=== PATIENT | female | born 1960 | race Caucasian/White ===

== ENCOUNTER 2017-02-10 14:23 | Outpatient (CLI) | payer MEDICARE, OTHER ==
--- OUTSIDE RECORDS SUMMARY | 2017-02-10 14:25 | XMS | Clinical Summary ---
:1960 Author Organization [facility] Address [address] [place] [address] Phone Care Team Providers Name Role Phone , Primary Care Provider Unavailable Allergies Not on File Current Medications Not on file Active Problems Not on file Social History Tobacco Use Types Packs/Day Years Used Date Never Assessed Sex Assigned at Date Recorded Not on file Last Filed Vital Signs Not on file Plan of Treatment Not on file Results Not on filefrom Last 3 Months
== END 2017-02-10 14:24 | disposition home or self-care (01) ==
LOC: WCC 14:23
PROVIDERS: ATTEND Family Medicine
DX: K94.00 Colostomy complication, unspecified (principal)
CPT/HCPCS: 97139 ×2; G0463; 99211

== ENCOUNTER 2017-05-23 09:22 | Outpatient (CLI) | payer MEDICARE, MEDICAID ==
--- NOTE | 2017-05-23 11:57 | CT ---
CT OF THE CHEST WITH COTNRAST CT OF THE ABDOMEN AND PELVIS WITH CONTRAST: COMPARISON: 11/10/16. HISTORY: Rectal cancer. TECHNIQUE: 1. Multiple contiguous axial images were obtained in a CT of the chest with contrast. Coronal refor mats were performed. 2. Multiple contiguous axial images were obtained in a CT of the abdomen and pelvis with contrast. P.o. contrast was administered. Coronal reformats were performed. FINDINGS: CT CHEST: No pulmonary nodules or infiltrates are seen. No pleural effusion or pneumothorax are seen. The heart is normal in size without focal cardiac abnormality. No hilar or mediastinal lymphadenopat hy are seen. The patient is status post sternotomy. There is a stable 1.6 cm hypodensity in the right lobe of the thyroid. The chest wall soft tissues a re unremarkable. No suspicious osseous lesions are seen in the bones of the thorax. CT ABDOMEN/PELVIS: Gallstones are seen in the gallbladder. The liver has a smooth contour. There is a recanalized kristen umbilical vein and multiple retroperitoneal varices. The spleen is enlarged measuring 16.8 cm in maximiliano gth. There are nonspecific subcentimeter hypodensities in the spleen which are stable. The kidneys, adrenal glands, and pancreas are unremarkable. No focal liver lesions are seen. The previously seen thrombus within the portal vein at the confluence has resolved. The previously s een thrombus within the branches of the superior mesenteric vein have nearly completely resolved with only a very small filling defect which could represent a mixing artifact versus a small amount of re sidual thrombus in this location. There is colostomy in the left lower quadrant of the abdominal wall. The rectum appears to have been removed. There is a small fluid collection in the perineum measuring 4.2 cm in size which may repre sent a seroma or abscess. There is moderate stool retention in the colon. The small bowel is normal in caliber. There is soft tissue density in the presacral space which may represent scarring or rad iation therapy change. No abdominal or pelvic lymphadenopathy are seen. Atherosclerotic calcifications are seen in the aort a. No inguinal adenopathy is seen. Soft tissue anasarca is present. The bones of the abdomen and p angelika show no suspicious osseous abnormality. IMPRESSION: 1. No evidence of intrathoracic metastatic disease. 2. Right thyroid hypodensity may represent a nodule or cyst. 3. There are multiple varices and splenomegaly consistent with portal hypertension. The previously seen thrombus in the portal vein and superior mesenteric vein have nearly completely resolved. 4. Interval postsurgical changes with an ostomy in the left abdominal wall and a fluid collection in the perineal region which may represent a seroma or abscess. Correlate with white blood cell count. 5. No evidence of intraabdominal recurrent disease. POS: [facility]
[2017-05-23] MEDS ORDERED: Iopamidol 370 76% 100 ML VIAL ONE (15:48)
== END 2017-05-23 09:23 | disposition home or self-care (01) ==
LOC: CT 09:22
PROVIDERS: ATTEND Internal Medicine Medical Oncology
DX: J90 Pleural effusion, not elsewhere classified (principal); E07.89 Other specified disorders of thyroid; R16.1 Splenomegaly, not elsewhere classified; I83.90 Asymptomatic varicose veins of unspecified lower extremity; Z86.718 Personal history of other venous thrombosis and embolism; Z85.048 Personal history of other malignant neoplasm of rectum, rectosigmoid junction, and anus; Z98.890 Other specified postprocedural states
CPT/HCPCS: 71260; 74177

== ENCOUNTER 2017-08-09 12:56 | Outpatient (CLI) | payer MEDICARE | END 2017-08-09 12:57 | disposition home or self-care (01) | LOC: BICMAMMO 12:56 | PROVIDERS: ATTEND Internal Medicine Medical Oncology | DX: Z85.038 Personal history of other malignant neoplasm of large intestine; Z12.31 Encounter for screening mammogram for malignant neoplasm of breast | CPT/HCPCS: 77063; 77067 ==

== ENCOUNTER 2017-12-11 16:02 | Observation (INO) | payer MEDICAID, MEDICARE ==
[2017-12-11 17:04] LABS: ALT (SGPT) 17 U/L (8-55); AST (SGOT) 30 U/L (5-34); Albumin 3.6 g/dL (3.5-5.0); Alkaline Phosphatase 58 U/L (40-150); Anion Gap 10 mmol/L (10-20); BUN (Urea Nitrogen) 7 mg/dL (9.8-20.1); Bilirubin, Total 1.5 mg/dL (0.2-1.2); CK (CPK) 473 U/L (29-168); Calc. Creatinine Clearance 0 mL/min (70-130); Calcium 8.9 mg/dL (7.8-10.44); Carbon Dioxide 25 mmol/L (22-29); Chloride 109 mmol/L (98-107); Estimated GFR-MDRD Greater than 90; Globulin 2.3 g/dL (2.4-3.5); Glucose 78 mg/dL (70-105); Lipase 42 U/L (8-78); Potassium 3.4 mmol/L (3.5-5.1); Protein, Total 5.9 g/dL (6.0-8.3); Sodium 141 mmol/L (136-145)
[2017-12-11 17:08] LABS: #Eosinphils 0.1 thou/uL (0.0-0.7); #Lymphocytes 0.7 thou/uL (1.20-3.40); #Monocytes 0.3 thou/uL (0.11-0.59); #Neutrophils 2.1 thou/uL (1.40-6.50); %Eosinophils 2.4 % (0.0-10.0); %Lymphocytes 22.3 % (21.0-51.0); %Monocytes 9.2 % (0.0-10.0); %Neutrophils 66.1 % (42.0-75.0); Mean Corpuscular HGB CONC 35.2 g/dL (32.0-36.0); Mean Corpuscular Hemoglobin 33.5 pg (27.0-31.0); Mean Corpuscular Volume 95.3 fL (78.0-98.0); Mean Platelet Volume 8.4 fL (7.4-10.4); Platelet Count 59 thou/uL (130-400); RBC Distribution Width 12.8 % (11.5-14.5); Red Blood Cell (RBC) Count 3.86 mill/uL (4.20-5.40); Troponin I 0.013 ng/mL (< 0.028); White Blood Cell (WBC) Count 3.2 thou/uL (4.8-10.8)
[2017-12-11 17:11] LABS: CKMB 8.6 ng/mL (0-6.6)
--- NOTE | 2017-12-11 17:14 | RAD ---
FRONTAL VIEW CHEST: INDICATIONS: Chest pain. COMPARISON: March 2017 FINDINGS: Postoperative changes of the mediastinum are again seen. There is no consolidation, effusion, or dis crete pneumothorax. The cardiac silhouette is accentuated by the portable technique. IMPRESSION: No focal consolidation. POS: [facility]
--- NOTE | 2017-12-11 18:09 | CT ---
CT HEAD NONCONTRAST: INDICATIONS: Dizziness. A 57-year-old female. FINDINGS: There is a normal sized ventricular system. No acute intracranial hemorrhage, mass effect, or midlin e shift. Minimal areas of bilateral white matter hypodensity, likely related to microvascular ischem ic disease. The paranasal sinuses are clear where visualized. IMPRESSION: 1. No acute intracranial abnormalities. 2. Subtle areas of white matter hypoattenuation bilaterally, which may be on the basis of microvascu lar ischemic disease. As necessary, followup with brain MRI may be obtained. POS: [facility]
[2017-12-11] MEDS ORDERED: Lidocaine Viscous Sol 2% 15 ml UD Cup ONE (18:12)
[2017-12-11] MEDS ORDERED: Mag-Al 1200 mg/1200 mg/30 ML UDCUP ONE (18:12)
[2017-12-11 18:41] LABS: Bilirubin Negative (Negative); Blood, Urine Negative (Negative); Clarity CLOUDY (Clear); Glucose, Urine (Dipstick) 250 mg/dL (Negative); Leukocyte Moderate (Negative); Nitrite Negative (Negative); Protein, Urine (Dipstick) Negative (Neg-Trace); Specific Gravity, Urine 1.021 (1.002-1.036); pH, Urine 6.5 (5.0-9.0)
[2017-12-11 18:44] LABS: Bacteria/HPF None Seen HPF (None Seen); Hyaline Casts/LPF 4-6 HYALINE CAST LPF (0-3 Hyaline); Pathc Cast-AUWi Flag 1.59 (0-2.49); WBC/HPF 21-50 HPF (0-3)
[2017-12-11] MEDS ORDERED: Nitrofurantoin Macrocrystal 50 MG CAP PO SCH (19:15)
[2017-12-11] MEDS ORDERED: Nitroglycerin 0.4 MG TAB (25 Tab Bottle) ONE (19:40)
[2017-12-11] MEDS ORDERED: Lorazepam 2 MG/ML VIAL ONE (19:49)
[2017-12-11] MEDS ORDERED: Ondansetron PF 4 MG/2 ML Vial IVP PRN (21:18)
[2017-12-11] MEDS ORDERED: Acetaminophen 325 MG TAB PO PRN (21:18)
[2017-12-11] MEDS ORDERED: clonazePAM 0.5 MG TAB PO PRN (21:20)
[2017-12-11] MEDS ORDERED: Ondansetron ODT 4 MG TAB PO PRN (21:20)
[2017-12-11 21:49] VITALS: BMI 36.0
[2017-12-11] MEDS ORDERED: Simethicone Chewable 80 MG TAB PO SCH (22:45)
[2017-12-12 00:44] LABS: Troponin I 0.029 ng/mL (< 0.028)
[2017-12-12] MEDS ORDERED: Nitrofurantoin Macrocrystal 50 MG CAP PO SCH (00:45)
[2017-12-12] MEDS ORDERED: cefTRIAXone\\ROCEPHIN 1 GM in Sodium Chloride 0.9% 100 ML IVPB SCH (01:00)
[2017-12-12 03:38] LABS: #Eosinphils 0.1 thou/uL (0.0-0.7); #Lymphocytes 0.8 thou/uL (1.20-3.40); #Monocytes 0.2 thou/uL (0.11-0.59); #Neutrophils 1.2 thou/uL (1.40-6.50); %Basophils 1.8 % (0.0-1.0); %Eosinophils 3.4 % (0.0-10.0); %Lymphocytes 35.6 % (21.0-51.0); %Monocytes 9.3 % (0.0-10.0); %Neutrophils 49.9 % (42.0-75.0); Hemoglobin 12.4 g/dL (12.0-16.0); Mean Corpuscular HGB CONC 36.3 g/dL (32.0-36.0); Mean Corpuscular Hemoglobin 34.6 pg (27.0-31.0); Mean Corpuscular Volume 95.4 fL (78.0-98.0); Platelet Count 52 thou/uL (130-400); RBC Distribution Width 12.6 % (11.5-14.5); Red Blood Cell (RBC) Count 3.59 mill/uL (4.20-5.40); White Blood Cell (WBC) Count 2.3 thou/uL (4.8-10.8)
[2017-12-12 03:44] LABS: Anion Gap 10 mmol/L (10-20); BUN (Urea Nitrogen) 7 mg/dL (9.8-20.1); Calc. Creatinine Clearance 157 mL/min (70-130); Calcium 8.6 mg/dL (7.8-10.44); Carbon Dioxide 24 mmol/L (22-29); Chloride 110 mmol/L (98-107); Estimated GFR-MDRD Greater than 90; Glucose 102 mg/dL (70-105); Potassium 3.2 mmol/L (3.5-5.1); Sodium 141 mmol/L (136-145)
[2017-12-12 03:49] LABS: Troponin I 0.024 ng/mL (< 0.028)
[2017-12-12] MEDS: Nitrofurantoin Macrocrystal 50 MG CAP PO SCH ×2 (06:39→12:00)
[2017-12-12] MEDS ORDERED: Spironolactone 25 MG TAB PO SCH (08:00)
[2017-12-12] MEDS ORDERED: Ferrous Sulfate 325 MG TAB PO SCH (08:00)
[2017-12-12] MEDS ORDERED: Cyanocobalamin (Vitamin B-12) 1,000 MCG TAB PO SCH (09:00)
[2017-12-12] MEDS ORDERED: Atorvastatin Calcium 10 MG TAB PO SCH (09:00)
[2017-12-12] MEDS ORDERED: Furosemide 40 MG TAB PO SCH (09:00)
[2017-12-12] MEDS ORDERED: Enoxaparin Sodium 40 MG/0.4 ML SYRINGE SC SCH (09:00)
[2017-12-12] MEDS: Simethicone Chewable 80 MG TAB PO SCH ×2 (11:30→12:13)
--- NOTE | 2017-12-12 12:05 | HP ---
CODE STATUS: FULL CODE. PRIMARY CARE PHYSICIAN: Roxanna Smith D.O. TIME OF EVALUATION: 08:00 p.m. CHIEF COMPLAINT: Chest pain. HISTORY OF PRESENT ILLNESS: This is a 57-year-old female patient with past medical history of hypertension; history of coronary artery disease, status post CABG. The patient came to the hospital after having chest pain that she described as a 10/10, the pain has been on and off for the past few days, but today she had an argument with the person that she is renting on her home and she developed the symptoms, no alleviating factors. The patient reported she had been trying to make an appointment with her radiator core tester, but discussion was for the future weeks. The symptoms are associated with neck pain and weakness. REVIEW OF SYSTEMS: Constitutional: No fever or chills, generalized weakness. Respiratory: No cough, no sputum production or shortness of breath. Cardiovascular: The patient has reported chest pain as described in HPI. Gastrointestinal: No nausea, no vomiting, no diarrhea, no abdominal pain. TRANSPORTATION MAINTENANCE OPERATOR : No dizziness, headache or feeling lightheaded. Genitourinary: No burning on urination. Extremities: No leg swelling. All other systems were reviewed and negative except for the findings mentioned above. PAST MEDICAL HISTORY: Coronary artery disease, status post CABG. She also has hypertension. PAST SURGICAL HISTORY: CABG in 2009 and left total knee replacement. PSYCHIATRIC HISTORY: Depression. SOCIAL HISTORY: No drug use. No smoking history. Lives at home alone. FAMILY HISTORY: History of cardiac disease, diabetes. ALLERGIES: CODEINE. REPORTED MEDICATIONS: Gabapentin, atorvastatin, furosemide, spironolactone, calcium, vitamin C, vitamin D3, vitamin B12, and aspirin. PHYSICAL EXAMINATION: VITAL SIGNS: On presentation, blood pressure 125/72 with heart rate 75, respiratory rate was 18, temperature 98.9, oxygen saturation 96% on room air. GENERAL APPEARANCE: The patient is alert and oriented, not in any acute distress. HEENT: Eyes, normal conjunctivae. Moist oral mucosa. Anicteric. NECK: No JVD. RESPIRATORY: Bilateral air entry. No rales, no wheezing. Symmetric expansion. CARDIOVASCULAR: Normal rate, regular rhythm. No murmurs, no gallop. No edema. ABDOMEN: Soft, normal bowel sounds. MUSCULOSKELETAL: Baseline range of motion and strength. No tenderness. SKIN: Warm and intact. No pallor, no rash, no redness. NEUROLOGIC: Baseline sensory. No evidence of any new focal weakness. Baseline speech. Cranial nerves seem to be intact. PSYCHIATRIC: The patient is in good mood; however, she is anxious after she had an argument with her renter. IMAGING: EKG was reviewed. The patient has a normal sinus rhythm, normal EKG with heart rate 74, IA 146, QRS 80, QT corrected 452. The brain CT showed no acute intracranial abnormalities, subtle areas of white matter, hypoattenuation bilaterally which may be on the basis of microvascular ischemic disease. Follow up with MRI may be obtained. The chest x-ray was reviewed. The patient had no focal consolidation. LABORATORY DATA: White count 3.2, hemoglobin 13, platelet count of 59. Sodium 141, potassium 3.4, chloride 109, BUN 7, creatinine 0.6, total bilirubin 1.5. CK 473, troponin 0.013. UA was done and was positive with white count 21-50. ASSESSMENT AND PLAN: The patient will be placed in the hospital with the following medical condition. 1. Chest pain, rule out acute coronary syndrome. The patient has strong risk factors including coronary artery bypass graft in the past, we will do stress test. Dr. Amezcua is her doctor, and he might need to be consulted for further management. 2. Hyperlipidemia, continue atorvastatin. 3. Urinary tract infection, UA is positive, start her on Rocephin, follow cultures, and adjust treatment as needed. 4. Deep venous thrombosis prophylaxis. MTDD
[2017-12-12] MEDS ORDERED: ADENOSINE 60 MG/20 ML VIAL ONE (13:07)
--- NOTE | 2017-12-12 14:21 | NM ---
RADIONUCLE STRESS REST MYOCARDIAL PERFUSION SCAN WITH CT ATTENUATION CORRECTION AND SPECT IMAGING LEFT VENTRICULAR EVALUATION AND EJECTION FRACTION: History: Chest pain. FINDINGS: Adenosine protocol. There is homogeneous uptake of radiotracer throughout the left ventricular myocar dium. No focal perfusion defect or reversibility. QGS analysis of SPECT images shows no focal wall mo tion abnormalities. Ejection fraction calculated at 75%. IMPRESSION: Normal myocardial perfusion scan. Normal LVEF. POS: [facility]
[2017-12-12 15:39] VITALS: BP 124/59; TEMP 97.9
--- NOTE | 2017-12-12 16:45 | DIS ---
DATE OF ADMISSION: 12/11/2017 DATE OF ADMISSION: 12/12/2017 DISPOSITION: Discharged home. PRIMARY CARE PHYSICIAN: Dr. Roxanna Smith. FINAL DIAGNOSES: Noncardiac chest pain, coronary artery disease, cirrhosis of the liver, status post colostomy, dyslipidemia, urinary tract infection, thrombocytopenia and leukopenia. DISCHARGE MEDICATIONS: Spironolactone 25 mg twice a day, Neurontin 300 mg twice a day, Lasix 40 mg t wice a day, Lipitor 10 mg a day, aspirin 81 mg a day, C 1000 mg p.o. daily, Omnicef 300 mg p.o. b.i.d . x5 days. ALLERGIES: CODEINE. PENDING AT THE TIME OF DISCHARGE: Urine culture sensitivities. CODE STATUS: FULL. HOSPITAL COURSE: The patient presented to emergency room with chest pain after an argument with a pe rson bringing her home described the pain as 10/10. Brain CT was done and showed no intracranial abn ormalities. EKG showed no acute changes per the history and physical. LABORATORY DATA AND IMAGING DATA: White count , platelet count 52,000, hemoglobin . Comp metabolic profile showed a creatinine kinase 474. Troponins were 0.013, 0.029, 0.024. The urine jones d white cell count. She has been treated with Rocephin while urine culture is pending. Today, she h as no chest pain, nuclear medicine cardiac, stress test is normal. She is being discharged for followup with her primary care provider in 1 week. No procedures were do ne. A prescription for Omnicef 300 mg twice a day for 5 days was given for her urinary tract infecti on.
[2017-12-12] MEDS ORDERED: Aspirin 81 mg Enteric Coated Tablet PO SCH (21:00)
--- NOTE | 2018-03-06 16:37 | STRESS ---
Acquisition Time: 2017-12-12 10:34:14 Total Exercise Time: 00:04:00 Test Indications: CHEST PAIN Medications: Protocol: ADENOSINE Max HR: 087 BPM 54% of Pred: 161 BPM Max BP: 116/068 mmHG Max Work Load: 1.0 METS RESTING ECG: SINUS BRADYCARDIA AT 55 BPM WITH NON-SPECIFIC ST SEGMENT CHANGES SYMPTOMS: DYSPNEA NORMAL BP RESPONSE ECTOPY: NONE ECG STRESS: NO SIGNIFICANT CHANGES INTERPRETATION: NEGATIVE ECG/AWAIT NUCLEAR IMAGES FOR DEFINITIVE DIAGNOSIS Confirmed by MARIYA DOCKERY M.D. ([id number]) on 03/06/2018 4:35:46 PM Referred By: MD Martha BAH Confirmed By:MARIYA DOCKERY M.D.
== END 2017-12-12 16:07 | disposition home or self-care (01) ==
LOC: ERS 16:02 → 2SW 19:24
PROVIDERS: ADMIT Hospitalist; ATTEND Hospitalist
DX: R07.89 Other chest pain (principal); I25.10 Atherosclerotic heart disease of native coronary artery without angina pectoris; I10 Essential (primary) hypertension; K74.60 Unspecified cirrhosis of liver; E78.5 Hyperlipidemia, unspecified; N39.0 Urinary tract infection, site not specified; D69.6 Thrombocytopenia, unspecified; D72.819 Decreased white blood cell count, unspecified; F32.9 Major depressive disorder, single episode, unspecified; Z79.82 Long term (current) use of aspirin; Z79.899 Other long term (current) drug therapy; Z88.5 Allergy status to narcotic agent; Z95.1 Presence of aortocoronary bypass graft
CPT/HCPCS: 70450; 71045; 78452; 80048; 80053; 82550; 82553; 83690; 84484 ×3; 85025 ×2; 93005; 93017; 94760; 96361; 96365; 96375; 99285; A9500; G0378 ×2; 36415; 81003; 81015; 96374; J0153; J0696; J2060; J7050

== ENCOUNTER 2018-03-24 10:52 | Outpatient (CLI) | payer MEDICARE, MEDICAID ==
[2018-03-24 11:36] LABS: Estimated GFR-MDRD - POC Greater than 90
[2018-03-24] MEDS ORDERED: Iopamidol 370 76% 100 ML VIAL ONE (12:32)
--- NOTE | 2018-03-24 13:43 | CT ---
CONTRAST ENHANCED CT IMAGES OF CHEST AND ABDOMEN AND PELVIS: HISTORY: A 57-year-old female with a history of rectal carcinoma status post resection. FINDINGS: Contrast-enhanced CT images of the chest, abdomen, and pelvis were obtained after the administration of IV and oral contrast. Sternotomy wires seen. There is a right thyroid nodule which is stable. No evidence of mediastinal, axillary, or hilar lymphadenopathy is seen. Calcification of the coronary arteries seen. No definite evidence of lung parenchymal lesions seen. Area of scarring is seen in the lingula. The liver contains some dilated hepatic varicosities. Numerous gallstones seen. The portal thrombus, w hich is secondarily calcified and revascularized, is again seen. No acute portal venous thrombus see n at this time. There is marked splenomegaly unchanged since the previous exam. Hypodense area seen in the spleen compatible with likely splenic cysts. Splenic varicosities also again present includi ng extending into the gastroesophageal region. These were all present on the previous exam and are u nchanged. The adrenal glands and kidneys are unremarkable. Umbilical hernia again seen unchanged since the previous exam. There is a left-sided colostomy site unchanged since the previous exam. There has been surgical rese ction of the rectum and portions of the sigmoid colon. Previously noted peroneal region soft tissue collection or abscess has resolved. Some loop of small bowel herniates inferiorly into the expected developmental location of the anus which has been surgically removed post surgical resection. IMPRESSION: Resolved peroneal fluid collection. Postsurgical change is seen. No evidence of acute thoracic, abd ominal, or pelvic abnormalities or changes seen. POS: [facility]
== END 2018-03-24 10:53 | disposition home or self-care (01) ==
LOC: BICCT 10:52 → CT 10:53
PROVIDERS: ATTEND Internal Medicine Medical Oncology
DX: C20 Malignant neoplasm of rectum (principal); Z98.890 Other specified postprocedural states
CPT/HCPCS: 71260; 74177; 82565

== ENCOUNTER 2018-04-27 17:30 | Emergency (ER) | payer MEDICARE, MEDICAID ==
[2018-04-27 18:18] LABS: #Basophils 0.1 thou/uL (0.0-0.2); #Eosinphils 0.1 thou/uL (0.0-0.7); #Lymphocytes 1.1 thou/uL (1.20-3.40); #Monocytes 0.3 thou/uL (0.11-0.59); #Neutrophils 1.8 thou/uL (1.40-6.50); %Basophils 2.4 % (0.0-1.0); %Eosinophils 3.8 % (0.0-10.0); %Monocytes 9.5 % (0.0-10.0); %Neutrophils 52.2 % (42.0-75.0); Hemoglobin 13.9 g/dL (12.0-16.0); Mean Corpuscular HGB CONC 34.4 g/dL (32.0-36.0); Mean Corpuscular Hemoglobin 31.9 pg (27.0-31.0); Mean Corpuscular Volume 92.6 fL (78.0-98.0); Mean Platelet Volume 8.4 fL (7.4-10.4); Platelet Count 70 thou/uL (130-400); RBC Distribution Width 12.6 % (11.5-14.5); Red Blood Cell (RBC) Count 4.36 mill/uL (4.20-5.40); White Blood Cell (WBC) Count 3.4 thou/uL (4.8-10.8)
[2018-04-27 19:24] LABS: INR-International Normal Ratio 1.3; PTT 35.8 SEC (22.9-36.1); Prothrombin Time 15.8 SEC (12.0-14.7)
[2018-04-27 19:35] LABS: ALT (SGPT) 18 U/L (8-55); AST (SGOT) 33 U/L (5-34); Albumin 3.8 g/dL (3.5-5.0); Alkaline Phosphatase 62 U/L (40-150); Anion Gap 13 mmol/L (10-20); BUN (Urea Nitrogen) 9 mg/dL (9.8-20.1); Bilirubin, Total 1.5 mg/dL (0.2-1.2); Calc. Creatinine Clearance 0 mL/min (70-130); Calcium 9.4 mg/dL (7.8-10.44); Carbon Dioxide 27 mmol/L (22-29); Chloride 105 mmol/L (98-107); Estimated GFR-MDRD Greater than 90; Globulin 2.8 g/dL (2.4-3.5); Glucose 98 mg/dL (70-105); Potassium 3.7 mmol/L (3.5-5.1); Protein, Total 6.6 g/dL (6.0-8.3); Sodium 141 mmol/L (136-145)
[2018-04-27 20:18] LABS: Bilirubin Negative (Negative); Blood, Urine Large (Negative); Clarity CLOUDY (Clear); Glucose, Urine (Dipstick) Negative (Negative); Leukocyte Small (Negative); Nitrite Negative (Negative); Protein, Urine (Dipstick) Negative (Neg-Trace); Specific Gravity, Urine 1.003 (1.002-1.036)
[2018-04-27 20:21] LABS: Hyaline Casts/LPF 0-3 HYALINE CAST LPF (0-3 Hyaline); Pathc Cast-AUWi Flag 0.72 (0-2.49); Squamous Epithelial 0-3 HPF (0-3); Yeast-AUWi Flag 44.6 (0-25.0)
[2018-04-27 20:31] LABS: Bacteria/HPF Rare-Few HPF (None Seen); Yeast-All Forms None Seen HPF (None Seen)
--- NOTE | 2018-04-27 22:27 | ULT ---
TRANSABDOMINAL AND TRANSVAGINAL PELVIC ULTRASOUND: 04/27/18 PROVIDED CLINICAL HISTORY: Postmenopausal bleeding. FINDINGS: Uterus measures about 11.7 x 4.2 x 5.2 cm and demonstrates an unremarkable appearance to the uterine myometrium. Endometrial thickness is approximately 4 to 5 mm. There is conspicuous fluid echogenicity present within the region of the uterine cervix. The ovaries are not distinctly identified. There is no evidence for free pelvic fluid. IMPRESSION: 1. No significant endometrial thickening is apparent. 2. Nonspecific fluid echogenicity in the region of the uterine cervix. POS: [facility]
--- NOTE | 2018-04-27 22:49 | CT ---
CT OF THE ABDOMEN AND PELVIS WITH IV CONTRAST 04/27/18 PROVIDED CLINICAL HISTORY: Vaginal bleeding. FINDINGS: The visualized lung bases are free of significant opacity. Splenomegaly and multiple splenic and gastric and paraesophageal varices are demonstrated. Multiple g allstones are seen. The kidneys, liver, pancreas and adrenal glands demonstrate a stable CT appearanc e. Left lower quadrant end colostomy change are seen. There is herniation of colon, small bowel and fat within the stomal defect. There is a fat containing umbilical hernia. There is no evidence for bowel obstruction. There is conspicuous colonic fecal retention suggesting constipation. The osseous structures demonstrate no concerning lytic or blastic lesions. There is no inflammatory f at stranding, free fluid or free air apparent. Vascular calcifications are seen. There is chronic alivia earing calcified thrombus present within the main portal vein which is partially occlusive. IMPRESSION: No evidence for an acute process. Chronic findings as above. POS: [facility]
== END 2018-04-27 23:56 | disposition home or self-care (01) ==
LOC: ERS 17:30
DX: N93.9 Abnormal uterine and vaginal bleeding, unspecified (principal); I10 Essential (primary) hypertension; F32.9 Major depressive disorder, single episode, unspecified
CPT/HCPCS: 36415; 74177; 76856; 80053; 81003; 81015; 82274; 85025; 85610; 85730; 86850; 86870; 86900; 86901; 86922; 87086

== ENCOUNTER 2018-08-17 15:02 | Outpatient (CLI) | payer MEDICARE, MEDICAID ==
--- NOTE | 2018-08-17 16:25 | MMO ---
Bilateral MAMMO Bilat Screen [facility]. CLINICAL HISTORY: Patient is 58 years old and is seen for screening. The patient has the following family history of breast cancer: cousin female and maternal aunt. The patient has a history of ovarian cancer in 2017; colon cancer in 2009 and liver cancer 20YRS AGO. The patient has a history of left cyst aspiration in 2013 - benign. VIEWS: The views performed were: bilateral craniocaudal with tomosynthesis and bilateral mediolateral oblique with tomosynthesis. FILMS COMPARED: The present examination has been compared to prior imaging studies performed at [facility] on 08/09/2017, and at [facility] on 10/01/2011, 08/20/2013, 08/19/2014 and 07/08/2016. MAMMOGRAM FINDINGS: There are scattered fibroglandular densities. Finding 1: There are stable benign appearing calcifications seen in both breasts. Finding 2: There are stable benign appearing densities seen in both breasts. There are no suspicious masses, suspicious calcifications, or new areas of architectural distortion. IMPRESSION: THERE IS NO MAMMOGRAPHIC EVIDENCE OF MALIGNANCY. A ROUTINE FOLLOW-UP MAMMOGRAM IN 1 YEAR IS RECOMMENDED. THE RESULTS OF THIS EXAM WERE SENT TO THE PATIENT. ACR BI-RADS Category 2 - Benign finding MAMMOGRAPHY NOTE: 1. A negative mammogram report should not delay a biopsy if a dominant of clinically suspicious mass is present. 2. Approximately 10% to 15% of breast cancers are not detected by mammography. 3. Adenosis and dense breasts may obscure an underlying neoplasm.
== END 2018-08-17 15:03 | disposition home or self-care (01) ==
LOC: BICMAMMO 15:02
PROVIDERS: ATTEND Internal Medicine Medical Oncology
DX: Z12.31 Encounter for screening mammogram for malignant neoplasm of breast (principal); Z85.038 Personal history of other malignant neoplasm of large intestine; Z85.43 Personal history of malignant neoplasm of ovary; Z80.3 Family history of malignant neoplasm of breast
CPT/HCPCS: 77063; 77067

== ENCOUNTER 2018-11-24 08:21 | Outpatient (CLI) | payer MEDICARE, OTHER ==
--- NOTE | 2018-11-24 09:14 | ULT ---
EXAM: US Hepatic Doppler PROVIDED CLINICAL HISTORY: Cirrhosis COMPARISON: CT 04/27/2018 FINDINGS: The visualized abdominal aorta and IVC are unremarkable. The pancreas appears normal as visualized. Liver demonstrates a coarsened echotexture compatible with the provided clinical history of cirrhosis without evidence for mass or intrahepatic biliary ductal dilatation. The common duct is nondilated. Gallstones are demonstrated without evidence for wall thickening or pericholecystic fluid . Prominent vessels are noted adjacent to the left hepatic lobe corresponding to the gastric varices noted by prior CT. Right kidney demonstrates no hydronephrosis or mass. Spleen appears enlarged, measuring about 13.5 cm in craniocaudal dimension. Color Doppler and spectral analysis of the hepatic portal, hepatic venous, hepatic arterial, splenic venous and splenic arterial waveforms demonstrates normal direction of flow. IMPRESSION: 1. Cirrhosis and portal hypertension. No evidence for hepatic mass. 2. Cholelithiasis. 3. Normal hepatic Doppler.
== END 2018-11-24 08:22 | disposition home or self-care (01) ==
LOC: ULT 08:21
PROVIDERS: ATTEND Physician Assistant Medical
DX: C53.9 Malignant neoplasm of cervix uteri, unspecified (principal); K70.30 Alcoholic cirrhosis of liver without ascites; K94.00 Colostomy complication, unspecified; K72.90 Hepatic failure, unspecified without coma; K80.20 Calculus of gallbladder without cholecystitis without obstruction; K76.6 Portal hypertension
CPT/HCPCS: 76705

== ENCOUNTER 2019-03-28 09:01 | Outpatient (CLI) | payer MEDICARE, OTHER ==
--- NOTE | 2019-03-28 11:16 | CT ---
CT CHEST WITH IV CONTRAST CT ABDOMEN WITH IV CONTRAST CT PELVIS WITH IV CONTRAST: HISTORY: Endometrial and rectal cancer. COMPARISON: CT chest, abdomen, and pelvis of 03/24/[address] abdomen and pelvis of 04/27/2018. FINDINGS: A 15 mm low-density lesion in the right lobe of the thyroid gland is again seen. No mediastinal, donald r, or axillary mass or lymphadenopathy is identified. No pleural or pericardial effusions are seen. Scarring in the lingula is again noted. No parenchymal lung nodules or masses are identified. Multiple gallstones, splenomegaly, multiple splenic, gastric, and paraesophageal varices are redemons trated. The liver, pancreas, adrenal glands, and kidneys demonstrate a stable CT appearance. A татьяна lization of the umbilical vein is again seen. No free air, free fluid, or lymphadenopathy is seen in the abdomen or pelvis. There are vascular pierre cifications without evidence of aneurysmal dilatation of the abdominal aorta. Chronic-appearing calc ified thrombus in the main portal vein is again seen with stable partial occlusion. The small bowel loops are not abnormally dilated. Left lower quadrant colostomy is again noted with redemonstration of herniation of colon, small bowel, and fat within the stomal defect. There is no e vidence of bowel obstruction. There is a small bowel loops containing small umbilical hernia. No osteolytic or osteoblastic lesions are seen. There are postop changes of median sternotomy. Ther e are degenerative changes in the thoracolumbar spine. IMPRESSION: Stable exam since 03/24/2018. POS: [facility]
== END 2019-03-28 09:02 | disposition home or self-care (01) ==
LOC: CT 09:01
PROVIDERS: ATTEND Internal Medicine Medical Oncology
DX: C55 Malignant neoplasm of uterus, part unspecified (principal); C54.1 Malignant neoplasm of endometrium; C19 Malignant neoplasm of rectosigmoid junction; I81 Portal vein thrombosis
CPT/HCPCS: 71260; 74177

== ENCOUNTER 2019-08-02 12:04 | Outpatient (CLI) | payer MEDICARE, MEDICAID ==
[2019-08-02] MEDS ORDERED: Iopamidol-370 76% 500 ML 1 ML ONE (13:43)
--- NOTE | 2019-08-02 13:58 | CT ---
CT chest with IV contrast CT abdomen and pelvis with IV and oral contrast HISTORY: Rectal cancer. Endometrial cancer. Restaging. COMPARISON: 05/23/2017. FINDINGS: Oval low density lesion within the inferior aspect of the right thyroid lobe is stable. Tara gs are well-inflated. Minimal linear scarring at the left lateral lung base. Dilated contrast-filled venous structures adjacent to the spleen, stomach, and distal esophagus are s imilar in appearance to the prior study. Spleen measures up to 15.6 cm. Very small nonspecific low-density lesion within the posterior lateral aspect of the spleen is stable. Hyperdense stones are present within the dependent portion of the gallbladder lumen. Dystrophic calci fication within the mid main portal vein is not significantly changed in appearance. Elongated low density filling defect has increased, however, within the main portal vein and extending into the inf erior mesenteric veins. Thickening of the wall of the right colon has the appearance of vascular congestion. Nonobstructed small and large bowel protruding into the left lower quadrant anterior abdominal wall f at through the ostomy defect has increased significantly since the prior study. It lies immediately adjacent to nonobstructed small bowel herniation into the umbilicus. No evidence of bowel obstruction. There are degenerative changes throughout the lumbar spine and sacr oiliac joints. IMPRESSION : Slight interval progression of portal vein thrombus, now extending into and throughout the inferior m esenteric veins. Enlargement of the left lower quadrant parastomal hernia and development of an umbilical hernia since the prior study. Hernias containing nonobstructed bowel. Findings of portal venous hypertension include moderate splenomegaly, extensive varices, and vascular congestion of the right colon that has progressed. Cholelithiasis.
== END 2019-08-02 12:05 | disposition home or self-care (01) ==
LOC: BICCT 12:04
PROVIDERS: ATTEND Internal Medicine Medical Oncology
DX: C20 Malignant neoplasm of rectum (principal); C54.1 Malignant neoplasm of endometrium; K43.5 Parastomal hernia without obstruction or gangrene; K42.9 Umbilical hernia without obstruction or gangrene; I81 Portal vein thrombosis; K55.069 Acute infarction of intestine, part and extent unspecified; K80.20 Calculus of gallbladder without cholecystitis without obstruction; R16.1 Splenomegaly, not elsewhere classified; K76.6 Portal hypertension; I87.8 Other specified disorders of veins; I83.90 Asymptomatic varicose veins of unspecified lower extremity
CPT/HCPCS: 71260; 74177; Q9967

== ENCOUNTER 2019-09-17 19:30 | Outpatient (CLI) | payer MEDICARE, MEDICAID | END 2019-09-17 19:31 | disposition home or self-care (01) | LOC: SLEEPLAB 19:30 | PROVIDERS: ATTEND Family Medicine | DX: G47.33 Obstructive sleep apnea (adult) (pediatric) (principal); G47.10 Hypersomnia, unspecified; E11.9 Type 2 diabetes mellitus without complications; F32.9 Major depressive disorder, single episode, unspecified; I25.10 Atherosclerotic heart disease of native coronary artery without angina pectoris; I10 Essential (primary) hypertension | CPT/HCPCS: 95810 ==

== ENCOUNTER 2019-09-19 13:04 | Outpatient (CLI) | payer MEDICARE, MEDICAID ==
--- NOTE | 2019-09-19 13:51 | MMO ---
Bilateral MAMMO Bilat Screen [facility]. CLINICAL HISTORY: Patient is 59 years old and is seen for screening. The patient has the following family history of breast cancer: cousin female and maternal aunt. The patient has a history of ovarian cancer in 2017; colon cancer in 2009 and liver cancer 20YRS AGO. The patient has a history of left cyst aspiration in 2013 - benign. VIEWS: The views performed were: bilateral craniocaudal with tomosynthesis and bilateral mediolateral oblique with tomosynthesis. FILMS COMPARED: The present examination has been compared to prior imaging studies performed at [facility] on 08/09/2017 and 08/17/2018, and at [facility] on 07/08/2016. This study has been interpreted with the assistance of computer-aided detection. MAMMOGRAM FINDINGS: There are scattered fibroglandular densities. There are no suspicious masses, suspicious calcifications, or new areas of architectural distortion. IMPRESSION: THERE IS NO MAMMOGRAPHIC EVIDENCE OF MALIGNANCY. A ROUTINE FOLLOW-UP MAMMOGRAM IN 1 YEAR IS RECOMMENDED. THE RESULTS OF THIS EXAM WERE SENT TO THE PATIENT. ACR BI-RADS Category 1 - Negative MAMMOGRAPHY NOTE: 1. A negative mammogram report should not delay a biopsy if a dominant of clinically suspicious mass is present. 2. Approximately 10% to 15% of breast cancers are not detected by mammography. 3. Adenosis and dense breasts may obscure an underlying neoplasm. Reported by: SHA SHOOK MD Electonically Signed: [id number]
== END 2019-09-19 13:05 | disposition home or self-care (01) ==
LOC: BICMAMMO 13:04
PROVIDERS: ATTEND Internal Medicine Medical Oncology
DX: Z12.31 Encounter for screening mammogram for malignant neoplasm of breast (principal); Z80.3 Family history of malignant neoplasm of breast; Z85.43 Personal history of malignant neoplasm of ovary; Z85.038 Personal history of other malignant neoplasm of large intestine; Z85.05 Personal history of malignant neoplasm of liver
CPT/HCPCS: 77063; 77067

== ENCOUNTER 2021-01-23 12:11 | Emergency (ER) | payer MEDICARE, MEDICAID ==
[2021-01-23] MEDS ORDERED: Meclizine HCl 25 MG TAB ONE (14:23)
[2021-01-23] MEDS ORDERED: Atropine Sulfate 1 mg/10 ml Syringe ONE (17:01)
[2021-01-23 20:18] LABS: Red Blood Cell (RBC) Count 4.31 mill/uL (4.20-5.40); White Blood Cell (WBC) Count 3.3 thou/uL (4.8-10.8)
[2021-01-23 20:19] LABS: %Lymphocytes 28.1 % (21.0-51.0); %Monocytes 9.2 % (0.0-10.0); %Neutrophils 59.7 % (42.0-75.0); Albumin 3.5 g/dL (3.4-4.8); Anion Gap 12 mmol/L (10-20); BUN (Urea Nitrogen) 9 mg/dL (9.8-20.1); Calc. Creatinine Clearance 0 mL/min (70-130); Calcium 9.2 mg/dL (7.8-10.44); Carbon Dioxide 32 mmol/L (23-31); Chloride 100 mmol/L (98-107); Glucose 121 mg/dL (80-115); Hemoglobin 14.7 g/dL (12.0-16.0); Mean Corpuscular HGB CONC 34.3 g/dL (32.0-36.0); Mean Corpuscular Volume 99.2 fL (78.0-98.0); Mean Platelet Volume 9.6 fL (7.4-10.4); Platelet Count 54 thou/uL (130-400); Potassium 4.3 mmol/L (3.5-5.1); Protein, Total 6.5 g/dL (5.8-8.1); RBC Distribution Width 12.7 % (11.5-14.5); Sodium 140 mmol/L (136-145)
[2021-01-23 20:20] LABS: #Eosinphils 0.1 thou/uL (0.0-0.7); #Lymphocytes 0.9 thou/uL (1.20-3.40); #Monocytes 0.3 thou/uL (0.11-0.59); %Eosinophils 2.9 % (0.0-10.0); ALT (SGPT) 19 U/L (8-55); AST (SGOT) 33 U/L (5-34); Alkaline Phosphatase 56 U/L (40-110); Platelet Morphology Comment Appears Decreased; RBC Morphology Normal
[2021-01-23 20:21] LABS: Troponin I 0.036 ng/mL (< 0.028)
[2021-01-23 21:24] LABS: Troponin I 0.032 ng/mL (< 0.028)
[2021-01-23 21:32] LABS: Clarity Clear (Clear)
[2021-01-23 21:33] LABS: Bacteria/HPF 1+ HPF (None Seen); Bilirubin Negative (Negative); Blood, Urine Negative (Negative); Glucose, Urine (Dipstick) Negative (Negative); Ketone, Urine Negative (Negative); Leukocyte Negative Leu/uL (Negative); Nitrite Positive (Negative); Protein, Urine (Dipstick) Negative (Neg-Trace); RBC/HPF None Seen HPF (0-3); Squamous Epithelial 0-3 HPF (0-3); Urobilinogen 0.2 mg/dL (Less than 2); WBC/HPF None Seen HPF (0-3)
== END 2021-01-23 22:20 | disposition home or self-care (01) ==
LOC: ERS 12:11
DX: R42 Dizziness and giddiness (principal); H93.19 Tinnitus, unspecified ear; R00.1 Bradycardia, unspecified; R29.700 NIHSS score 0; E11.9 Type 2 diabetes mellitus without complications; K74.60 Unspecified cirrhosis of liver
CPT/HCPCS: 70450; 80053; 81001; 84484; 85025; 93005; J0461

== ENCOUNTER 2021-04-29 09:03 | Outpatient (CLI) | payer MEDICARE, MEDICAID | END 2021-04-29 09:04 | disposition home or self-care (01) | LOC: CT 09:03 | PROVIDERS: ATTEND Internal Medicine Gastroenterology | DX: C53.9 Malignant neoplasm of cervix uteri, unspecified (principal); K70.30 Alcoholic cirrhosis of liver without ascites; C55 Malignant neoplasm of uterus, part unspecified; C20 Malignant neoplasm of rectum; K76.6 Portal hypertension; K80.20 Calculus of gallbladder without cholecystitis without obstruction; R16.1 Splenomegaly, not elsewhere classified | CPT/HCPCS: 71260; 74177 ==

== ENCOUNTER 2021-05-26 13:56 | Outpatient (CLI) | payer MEDICARE, MEDICAID | END 2021-05-26 13:57 | disposition home or self-care (01) | LOC: BICMAMMO 13:56 | PROVIDERS: ATTEND Internal Medicine Medical Oncology | DX: Z12.31 Encounter for screening mammogram for malignant neoplasm of breast (principal); Z13.820 Encounter for screening for osteoporosis; Z78.0 Asymptomatic menopausal state; Z80.3 Family history of malignant neoplasm of breast; Z85.43 Personal history of malignant neoplasm of ovary; M85.859 Other specified disorders of bone density and structure, unspecified thigh | CPT/HCPCS: 77063; 77067; 77080 ==

== ENCOUNTER 2021-06-23 11:14 | Inpatient (IN) | payer MEDICARE, MEDICAID ==
[2021-06-23] MEDS ORDERED: Aspirin Chewable 81 MG TAB ONE (11:38)
[2021-06-23 11:59] LABS: #Eosinphils 0.1 thou/uL (0.0-0.7); #Lymphocytes 0.8 thou/uL (1.20-3.40); #Monocytes 0.2 thou/uL (0.11-0.59); #Neutrophils 1.7 thou/uL (1.40-6.50); %Eosinophils 4.2 % (0.0-10.0); %Lymphocytes 27.3 % (21.0-51.0); %Monocytes 8.6 % (0.0-10.0); Hemoglobin 15.7 g/dL (12.0-16.0); Mean Corpuscular HGB CONC 33.8 g/dL (32.0-36.0); Mean Corpuscular Hemoglobin 33.2 pg (27.0-31.0); Mean Corpuscular Volume 98.1 fL (78.0-98.0); Mean Platelet Volume 8.8 fL (7.4-10.4); Platelet Count 54 thou/uL (130-400); RBC Distribution Width 12.5 % (11.5-14.5); Red Blood Cell (RBC) Count 4.71 mill/uL (4.20-5.40); White Blood Cell (WBC) Count 2.8 thou/uL (4.8-10.8)
[2021-06-23 12:13] LABS: ALT (SGPT) 19 U/L (8-55); AST (SGOT) 24 U/L (5-34); Albumin 3.6 g/dL (3.4-4.8); Alkaline Phosphatase 64 U/L (40-110); Anion Gap 11 mmol/L (10-20); BUN (Urea Nitrogen) 8 mg/dL (9.8-20.1); Bilirubin, Total 1.9 mg/dL (0.2-1.2); Calc. Creatinine Clearance 0 mL/min (70-130); Calcium 9.2 mg/dL (7.8-10.44); Carbon Dioxide 27 mmol/L (23-31); Chloride 102 mmol/L (98-107); Globulin 2.8 g/dL (2.4-3.5); Glucose 280 mg/dL (80-115); Lipase 18 U/L (8-78); Potassium 3.7 mmol/L (3.5-5.1); Protein, Total 6.4 g/dL (5.8-8.1); Sodium 136 mmol/L (136-145)
[2021-06-23] MEDS ORDERED: Senokot S 8.6-50 MG TAB PO PRN (15:19)
[2021-06-23] MEDS ORDERED: Ondansetron PF 4 MG/2 ML Vial IVP PRN (15:19)
[2021-06-23] MEDS ORDERED: hydrALAZINE 20 MG/ML VIAL SLOW IVP PRN (15:21)
[2021-06-23] MEDS ORDERED: Dextrose 50% Abboject 50 ML SYRINGE SLOW IVP PRN (15:23)
[2021-06-23] MEDS ORDERED: Dextrose 5% in Water 1,000 ML IV PRN (15:23)
[2021-06-23] MEDS ORDERED: Lorazepam 2 MG/ML VIAL ONE (15:59)
[2021-06-23] MEDS ORDERED: Lorazepam 2 MG/ML VIAL SLOW IVP SCH (16:15)
[2021-06-23 17:37] LABS: Troponin I Less than 0.010 ng/mL (< 0.028)
[2021-06-23 19:50] VITALS: BMI 40.6
[2021-06-23 20:30] LABS: Troponin I 0.011 ng/mL (< 0.028)
[2021-06-23] MEDS: Atorvastatin Calcium 40 MG TAB PO SCH (21:00)
[2021-06-23] MEDS: Famotidine 20 MG TAB PO SCH (21:00)
[2021-06-23] MEDS: Furosemide 40 MG TAB PO SCH (21:00)
[2021-06-23] MEDS: Gabapentin 300 MG CAP PO SCH (21:02)
[2021-06-23] MEDS ORDERED: tiZANidine HCl 4 MG TAB PO SCH (23:00)
[2021-06-24 05:20] LABS: #Eosinphils 0.1 thou/uL (0.0-0.7); #Lymphocytes 0.9 thou/uL (1.20-3.40); #Monocytes 0.2 thou/uL (0.11-0.59); #Neutrophils 0.8 thou/uL (1.40-6.50); %Basophils 1.3 % (0.0-1.0); %Lymphocytes 44.1 % (21.0-51.0); %Monocytes 9.8 % (0.0-10.0); %Neutrophils 40.8 % (42.0-75.0); Hemoglobin 14.2 g/dL (12.0-16.0); Mean Corpuscular HGB CONC 34.3 g/dL (32.0-36.0); Mean Corpuscular Hemoglobin 33.8 pg (27.0-31.0); Mean Corpuscular Volume 98.7 fL (78.0-98.0); Mean Platelet Volume 9.1 fL (7.4-10.4); Platelet Count 51 thou/uL (130-400); RBC Distribution Width 12.4 % (11.5-14.5); Red Blood Cell (RBC) Count 4.21 mill/uL (4.20-5.40)
[2021-06-24 06:08] LABS: Anion Gap 14 mmol/L (10-20); BUN (Urea Nitrogen) 7 mg/dL (9.8-20.1); Calc. Creatinine Clearance 140 mL/min (70-130); Calcium 8.5 mg/dL (7.8-10.44); Carbon Dioxide 24 mmol/L (23-31); Cardiac Risk 4.4 (Less than 4.5); Chloride 102 mmol/L (98-107); Cholesterol 169 mg/dl (< 200 Desired); Glucose 292 mg/dL (80-115); HDL Cholesterol 38 mg/dL (>60 Neg Risk); LDL Cholesterol, Calculated 112 mg/dL; Potassium 3.3 mmol/L (3.5-5.1); Sodium 137 mmol/L (136-145); Triglycerides 94 mg/dL (Less than 150)
[2021-06-24] MEDS: HumaLOG 300 UNITS/3 ML VIAL SC PRN ×3 (06:12→19:20)
[2021-06-24] MEDS ORDERED: Potassium Chloride 20 MEQ TAB PO SCH (07:45)
[2021-06-24] MEDS: Furosemide 40 MG TAB PO SCH ×2 (08:43→21:55)
[2021-06-24] MEDS: Aspirin 81 mg Enteric Coated Tablet PO SCH (08:43)
[2021-06-24] MEDS: Gabapentin 300 MG CAP PO SCH ×2 (08:43→21:55)
[2021-06-24] MEDS: Famotidine 20 MG TAB PO SCH ×2 (08:43→21:54)
[2021-06-24] MEDS ORDERED: FLU VACC QS2021-22(6MOS UP)/PF 60 MCG/0.5 ML SYRINGE IM ONE (09:00)
[2021-06-24] MEDS ORDERED: Enoxaparin Sodium 40 MG/0.4 ML SYRINGE SC SCH (09:00)
[2021-06-24 11:14] LABS: SARS-CoV-2 PCR by NAA Not Detected (NotDetected)
[2021-06-24] MEDS: Lorazepam 2 MG/ML VIAL SLOW IVP PRN (14:35)
[2021-06-24] MEDS: Atorvastatin Calcium 40 MG TAB PO SCH (21:54)
[2021-06-24] MEDS: tiZANidine HCl 4 MG TAB PO SCH (21:58)
[2021-06-25 05:30] LABS: Hemoglobin A1c 10.2 % (4.0-6.0)
[2021-06-25] MEDS: HumaLOG 300 UNITS/3 ML VIAL SC PRN ×3 (07:24→19:36)
[2021-06-25] MEDS: Famotidine 20 MG TAB PO SCH ×2 (11:12→20:57)
[2021-06-25] MEDS: Furosemide 40 MG TAB PO SCH ×2 (11:12→20:57)
[2021-06-25] MEDS: Aspirin 81 mg Enteric Coated Tablet PO SCH (11:12)
[2021-06-25] MEDS: Gabapentin 300 MG CAP PO SCH ×2 (11:12→20:57)
[2021-06-25] MEDS: Dexamethasone 1 MG TAB PO SCH ×2 (15:03→20:56)
[2021-06-25] MEDS: HYDROcodone/Acetaminophen 5/325 mg Tablet PO PRN ×2 (15:03→21:00)
[2021-06-25] MEDS: Atorvastatin Calcium 40 MG TAB PO SCH (20:56)
[2021-06-25] MEDS: Lantus 1000 UNITS/10 ML VIAL SC SCH (20:58)
[2021-06-25] MEDS: tiZANidine HCl 4 MG TAB PO SCH (21:00)
[2021-06-26] MEDS: HumaLOG 300 UNITS/3 ML VIAL SC PRN ×4 (00:28→18:28)
[2021-06-26] MEDS: Dexamethasone 1 MG TAB PO SCH ×3 (09:46→20:27)
[2021-06-26] MEDS: Famotidine 20 MG TAB PO SCH ×2 (09:48→20:27)
[2021-06-26] MEDS: Furosemide 40 MG TAB PO SCH ×2 (09:48→20:28)
[2021-06-26] MEDS: Gabapentin 300 MG CAP PO SCH ×2 (09:48→20:28)
[2021-06-26] MEDS: Aspirin 81 mg Enteric Coated Tablet PO SCH (10:34)
[2021-06-26] MEDS: HYDROcodone/Acetaminophen 5/325 mg Tablet PO PRN (13:50)
[2021-06-26] MEDS ORDERED: Lidocaine 5% Patch TD SCH (15:00)
[2021-06-26] MEDS: Morphine 4 MG/ML VIAL SLOW IVP PRN (16:04)
[2021-06-26] MEDS: Atorvastatin Calcium 40 MG TAB PO SCH (20:27)
[2021-06-26] MEDS: Lantus 1000 UNITS/10 ML VIAL SC SCH (20:29)
[2021-06-26] MEDS: tiZANidine HCl 4 MG TAB PO SCH (20:30)
[2021-06-26] MEDS: Lorazepam 2 MG/ML VIAL SLOW IVP PRN (20:34)
[2021-06-27] MEDS: Morphine 4 MG/ML VIAL SLOW IVP PRN ×4 (00:04→20:35)
[2021-06-27] MEDS: HumaLOG 300 UNITS/3 ML VIAL SC PRN ×5 (00:05→20:15)
[2021-06-27] MEDS ORDERED: Transdermal Patch Removal TOP SCH (03:00)
[2021-06-27] MEDS: Dexamethasone 1 MG TAB PO SCH ×3 (09:12→20:14)
[2021-06-27] MEDS: Ezetimibe 10 MG TAB PO SCH (09:12)
[2021-06-27] MEDS: Aspirin 81 mg Enteric Coated Tablet PO SCH (09:12)
[2021-06-27] MEDS: Furosemide 40 MG TAB PO SCH ×2 (09:14→20:14)
[2021-06-27] MEDS: Gabapentin 300 MG CAP PO SCH ×2 (09:14→20:13)
[2021-06-27] MEDS: Famotidine 20 MG TAB PO SCH ×2 (10:20→20:14)
[2021-06-27] MEDS: Lidocaine 5% Patch TD SCH (15:24)
[2021-06-27] MEDS: tiZANidine HCl 4 MG TAB PO SCH (20:13)
[2021-06-27] MEDS: Atorvastatin Calcium 40 MG TAB PO SCH (20:13)
[2021-06-27] MEDS: Lantus 1000 UNITS/10 ML VIAL SC SCH (20:16)
[2021-06-28] MEDS: Transdermal Patch Removal TOP SCH (03:51)
[2021-06-28] MEDS: HumaLOG 300 UNITS/3 ML VIAL SC PRN ×4 (05:42→23:58)
[2021-06-28] MEDS: Dexamethasone 1 MG TAB PO SCH ×3 (09:00→19:47)
[2021-06-28] MEDS: Aspirin 81 mg Enteric Coated Tablet PO SCH (09:00)
[2021-06-28] MEDS: Ezetimibe 10 MG TAB PO SCH (09:01)
[2021-06-28] MEDS: Famotidine 20 MG TAB PO SCH ×2 (09:01→19:47)
[2021-06-28] MEDS: Furosemide 40 MG TAB PO SCH ×2 (09:02→19:48)
[2021-06-28] MEDS: Gabapentin 300 MG CAP PO SCH ×2 (09:02→19:48)
[2021-06-28] MEDS: Acetaminophen 325 MG TAB PO PRN ×2 (09:03→19:50)
[2021-06-28] MEDS: Morphine 4 MG/ML VIAL SLOW IVP PRN ×2 (13:04→22:25)
[2021-06-28] MEDS: Lidocaine 5% Patch TD SCH (15:43)
[2021-06-28] MEDS: Atorvastatin Calcium 40 MG TAB PO SCH (19:46)
[2021-06-28] MEDS: Lantus 1000 UNITS/10 ML VIAL SC SCH (19:49)
[2021-06-28] MEDS: tiZANidine HCl 4 MG TAB PO SCH (19:50)
[2021-06-29] MEDS: Transdermal Patch Removal TOP SCH (03:26)
[2021-06-29 05:09] LABS: Anion Gap 14 mmol/L (10-20); BUN (Urea Nitrogen) 17 mg/dL (9.8-20.1); Calc. Creatinine Clearance 121 mL/min (70-130); Calcium 8.7 mg/dL (7.8-10.44); Carbon Dioxide 32 mmol/L (23-31); Chloride 95 mmol/L (98-107); Glucose 290 mg/dL (80-115); Potassium 3.6 mmol/L (3.5-5.1); Sodium 137 mmol/L (136-145)
[2021-06-29 05:29] LABS: #Lymphocytes 0.6 thou/uL (1.20-3.40); #Monocytes 0.2 thou/uL (0.11-0.59); %Basophils 1.3 % (0.0-1.0); %Eosinophils 0.4 % (0.0-10.0); %Lymphocytes 20.1 % (21.0-51.0); %Monocytes 7.3 % (0.0-10.0); %Neutrophils 70.9 % (42.0-75.0); Hemoglobin 15.2 g/dL (12.0-16.0); Mean Corpuscular HGB CONC 34.7 g/dL (32.0-36.0); Mean Corpuscular Hemoglobin 34.2 pg (27.0-31.0); Mean Corpuscular Volume 98.6 fL (78.0-98.0); Platelet Count 42 thou/uL (130-400); RBC Distribution Width 12.3 % (11.5-14.5); Red Blood Cell (RBC) Count 4.45 mill/uL (4.20-5.40); White Blood Cell (WBC) Count 2.8 thou/uL (4.8-10.8)
[2021-06-29] MEDS: HumaLOG 300 UNITS/3 ML VIAL SC PRN ×2 (06:28→18:48)
[2021-06-29] MEDS: Dexamethasone 1 MG TAB PO SCH ×3 (08:17→22:14)
[2021-06-29] MEDS: Aspirin 81 mg Enteric Coated Tablet PO SCH (08:17)
[2021-06-29] MEDS: Ezetimibe 10 MG TAB PO SCH (08:19)
[2021-06-29] MEDS: Famotidine 20 MG TAB PO SCH ×2 (08:19→22:14)
[2021-06-29] MEDS: Gabapentin 300 MG CAP PO SCH ×2 (08:20→22:15)
[2021-06-29] MEDS: Furosemide 40 MG TAB PO SCH ×2 (08:20→22:15)
[2021-06-29] MEDS: Glimepiride 4 MG TAB PO SCH (08:21)
[2021-06-29] MEDS: Oxybutynin ER 5 MG TAB PO SCH (08:22)
[2021-06-29] MEDS: Morphine 4 MG/ML VIAL SLOW IVP PRN (08:23)
[2021-06-29] MEDS: Lidocaine 5% Patch TD SCH (14:41)
[2021-06-29] MEDS: Acetaminophen 325 MG TAB PO PRN (14:41)
[2021-06-29] MEDS ORDERED: Nadolol 40 MG TAB PO SCH (21:00)
[2021-06-29] MEDS: tiZANidine HCl 4 MG TAB PO SCH (22:14)
[2021-06-29] MEDS: Atorvastatin Calcium 40 MG TAB PO SCH (22:14)
[2021-06-29] MEDS: Lantus 1000 UNITS/10 ML VIAL SC SCH (22:16)
[2021-06-30] MEDS: Transdermal Patch Removal TOP SCH (03:09)
[2021-06-30] MEDS: HumaLOG 300 UNITS/3 ML VIAL SC PRN (06:15)
[2021-06-30] MEDS: Oxybutynin ER 5 MG TAB PO SCH (08:30)
[2021-06-30] MEDS: Dexamethasone 1 MG TAB PO SCH (08:32)
[2021-06-30] MEDS: Ezetimibe 10 MG TAB PO SCH (08:32)
[2021-06-30] MEDS: Glimepiride 4 MG TAB PO SCH (08:32)
[2021-06-30] MEDS: Aspirin 81 mg Enteric Coated Tablet PO SCH (08:32)
[2021-06-30] MEDS: Gabapentin 300 MG CAP PO SCH (08:33)
[2021-06-30] MEDS: Famotidine 20 MG TAB PO SCH (08:33)
[2021-06-30] MEDS: Furosemide 40 MG TAB PO SCH (09:07)
[2021-06-30 10:34] VITALS: BP 150/72; TEMP 98.3
== END 2021-06-30 12:10 | disposition home or self-care (01) | DRG 552 ==
LOC: ERS 11:14 → ERHOLD 15:17 → 2SW 19:42 → OBSVTOIN 06-25 10:51
PROVIDERS: ADMIT Hospitalist; ATTEND Internal Medicine
DX: M48.02 Spinal stenosis, cervical region (principal); Z68.41 Body mass index [BMI] 40.0-44.9, adult; M50.021 Cervical disc disorder at C4-C5 level with myelopathy; Z20.822 Contact with and (suspected) exposure to COVID-19; I11.9 Hypertensive heart disease without heart failure; I25.10 Atherosclerotic heart disease of native coronary artery without angina pectoris; R07.89 Other chest pain; D50.9 Iron deficiency anemia, unspecified; E66.01 Morbid (severe) obesity due to excess calories; K80.50 Calculus of bile duct without cholangitis or cholecystitis without obstruction; M54.12 Radiculopathy, cervical region; K43.2 Incisional hernia without obstruction or gangrene; K70.30 Alcoholic cirrhosis of liver without ascites; E11.65 Type 2 diabetes mellitus with hyperglycemia; K43.5 Parastomal hernia without obstruction or gangrene; D69.6 Thrombocytopenia, unspecified; M25.562 Pain in left knee; R19.7 Diarrhea, unspecified; Z88.5 Allergy status to narcotic agent; Z91.09 Other allergy status, other than to drugs and biological substances; Z79.899 Other long term (current) drug therapy; Z79.84 Long term (current) use of oral hypoglycemic drugs; Z85.038 Personal history of other malignant neoplasm of large intestine; Z95.1 Presence of aortocoronary bypass graft; Z90.49 Acquired absence of other specified parts of digestive tract; Z81.8 Family history of other mental and behavioral disorders; Z93.3 Colostomy status
CPT/HCPCS: 36415; 36416; 70450; 70551; 71045; 72052; 72141; 78452; 80048; 80053; 80061; 83036; 83690; 84484; 85025; 93005; 93010; 93017; 93306; 94760; 96372; 96375; 96376; A9500; G0378; J0153; J1815; J2060; J2270; J8540; L0174; U0003; U0005

== ENCOUNTER 2022-01-13 | Emergency (ER) | payer OTHER ==
[2022-01-13 01:45] LABS: #Eosinphils 0.1 thou/uL (0.0-0.7); #Lymphocytes 1.3 thou/uL (1.20-3.40); #Monocytes 0.4 thou/uL (0.11-0.59); #Neutrophils 2.2 thou/uL (1.40-6.50); %Basophils 0.3 % (0.0-1.0); %Eosinophils 3.4 % (0.0-10.0); %Lymphocytes 32.1 % (21.0-51.0); %Monocytes 10.7 % (0.0-10.0); %Neutrophils 53.5 % (42.0-75.0); ALT (SGPT) 18 U/L (8-55); AST (SGOT) 24 U/L (5-34); Albumin 3.4 g/dL (3.4-4.8); Alkaline Phosphatase 61 U/L (40-110); Anion Gap 12 mmol/L (10-20); BUN (Urea Nitrogen) 16 mg/dL (9.8-20.1); Bilirubin, Total 1.4 mg/dL (0.2-1.2); Calc. Creatinine Clearance 0 mL/min (70-130); Calcium 9.2 mg/dL (7.8-10.44); Carbon Dioxide 29 mmol/L (23-31); Chloride 102 mmol/L (98-107); Estimated GFR 85; Globulin 2.2 g/dL (2.4-3.5); Glucose 118 mg/dL (80-115); Hemoglobin 13.6 g/dL (12.0-16.0); Magnesium 1.4 mg/dL (1.6-2.6); Mean Corpuscular Hemoglobin 35.3 pg (27.0-31.0); Mean Platelet Volume 8.8 fL (7.4-10.4); Platelet Count 69 thou/uL (130-400); Protein, Total 5.6 g/dL (5.8-8.1); RBC Distribution Width 12.7 % (11.5-14.5); Red Blood Cell (RBC) Count 3.85 mill/uL (4.20-5.40); Sodium 139 mmol/L (136-145)
== END 2022-01-13 04:15 | disposition home or self-care (01) ==
LOC: ERS
DX: R53.1 Weakness (principal); R11.2 Nausea with vomiting, unspecified; E11.9 Type 2 diabetes mellitus without complications; I10 Essential (primary) hypertension; Z79.4 Long term (current) use of insulin
CPT/HCPCS: 36415; 71045; 80053; 83735; 84484; 85025; 93005

== ENCOUNTER 2022-06-16 13:45 | Outpatient (CLI) | payer OTHER | END 2022-06-16 13:46 | disposition home or self-care (01) | LOC: BICMAMMO 13:45 | PROVIDERS: ATTEND Internal Medicine Medical Oncology | DX: Z12.31 Encounter for screening mammogram for malignant neoplasm of breast (principal); Z80.3 Family history of malignant neoplasm of breast; Z85.43 Personal history of malignant neoplasm of ovary; Z85.038 Personal history of other malignant neoplasm of large intestine; Z85.09 Personal history of malignant neoplasm of other digestive organs | CPT/HCPCS: 77063; 77067 ==

== ENCOUNTER 2022-11-22 09:12 | Inpatient (IN) | payer OTHER ==
[2022-11-22 09:46] LABS: #Monocytes 0.2 thou/uL (0.11-0.59); #Neutrophils 2.6 thou/uL (1.40-6.50); %Basophils 0.3 % (0.0-1.0); %Lymphocytes 8.3 % (21.0-51.0); %Monocytes 7.6 % (0.0-10.0); %Neutrophils 82.5 % (42.0-75.0); Hemoglobin 11.7 g/dL (12.0-16.0); Mean Corpuscular HGB CONC 35.1 g/dL (32.0-36.0); Mean Corpuscular Hemoglobin 34.1 pg (27.0-31.0); Mean Corpuscular Volume 97.1 fl (78.0-98.0); Mean Platelet Volume 10.3 fL (7.4-10.4); RBC Distribution Width 14.1 % (11.5-14.5); Red Blood Cell (RBC) Count 3.43 mill/uL (4.20-5.40); White Blood Cell (WBC) Count 3.2 10x3/uL (4.8-10.8)
[2022-11-22] MEDS ORDERED: Ibuprofen 800 MG TAB ONE (09:49)
[2022-11-22 09:51] LABS: Platelet Count 45 10x3/uL (130-400)
[2022-11-22 09:52] LABS: Manual Diff?? YES
[2022-11-22] MEDS ORDERED: Iopamidol-370 76% 500 ML MDV (1 ML CHARGE) ONE (09:59)
[2022-11-22 10:02] LABS: INR-International Normal Ratio 1.5; PTT 34.8 sec (22.9-36.1); Prothrombin Time 18.3 sec (12.0-14.7)
[2022-11-22 10:17] LABS: ALT (SGPT) 31 U/L (8-55); AST (SGOT) 36 U/L (5-34); Albumin 3.3 g/dL (3.4-4.8); Alkaline Phosphatase 57 U/L (40-110); Anion Gap 14 mmol/L (10-20); BUN (Urea Nitrogen) 12 mg/dL (9.8-20.1); Calc. Creatinine Clearance 0 mL/min (70-130); Calcium 8.7 mg/dL (7.8-10.44); Carbon Dioxide 21 mmol/L (23-31); Chloride 106 mmol/L (98-107); Estimated GFR 93; Globulin 2.1 g/dL (2.4-3.5); Glucose 168 mg/dL (80-115); Lipase 24 U/L (8-78); Magnesium 1.2 mg/dL (1.6-2.6); Potassium 3.6 mmol/L (3.5-5.1); Protein, Total 5.4 g/dL (5.8-8.1); Sodium 137 mmol/L (136-145)
[2022-11-22] MEDS ORDERED: Cefepime 2 GM VIAL ONE (10:27)
[2022-11-22 10:59] LABS: Band 36 % (5-11); CellaVision Operator ID LAB.GE; Giant Platelets 0.9 % (0-5); Large Platelets 4.7 % (0-5); Lymphocytes 7 % (21-51); Metamyelocyte 11 % (0-0); Monocytes 2 % (0-10); Neutrophil 44 % (42-75); Ovalocytes SLIGHT = 2-5 cells HPF (0-1); Platelet Adequacy Comment Significant decrease; Polychromasia SLIGHT = 2-3 cells HPF (0-2); Total Cell Count 107; Vacuoles MODERATE
[2022-11-22] MEDS ORDERED: Morphine 4 MG/ML VIAL ONE (11:18)
[2022-11-22] MEDS ORDERED: Piperacillin/Tazobactam 4.5 GM VIAL ONE (12:19)
[2022-11-22 12:59] LABS: SARS-CoV-2 NAA Rapid Test Not Detected (NotDetected)
[2022-11-22 13:00] LABS: Bacteria/HPF None Seen HPF (None Seen); Bilirubin Negative (Negative); Blood, Urine Negative (Negative); CAUTI Indications for Culture Dysuria,urgency,freq; Clarity Turbid (Clear); Glucose, Urine (Dipstick) 50 mg/dL (Negative); Ketone, Urine Negative (Negative); Leukocyte Negative Leu/uL (Negative); Nitrite Negative (Negative); Protein, Urine (Dipstick) 20 mg/dL (Neg-Trace); RBC/HPF 0-3 HPF (0-3); Specific Gravity, Urine 1.025 (1.002-1.036); Urobilinogen Normal mg/dL (Less than 2); pH, Urine 5.5 (5.0-9.0)
[2022-11-22 13:03] LABS: Urine Culture Reflex No No
[2022-11-22] MEDS ORDERED: Calcium Carbonate 500 MG ChewTAB PO PRN (13:33)
[2022-11-22] MEDS ORDERED: Dextrose 50% Abboject 50 ML SYRINGE IVP PRN (14:30)
[2022-11-22] MEDS ORDERED: Dextrose 5% in Water 1,000 ML IV PRN (14:30)
[2022-11-22] MEDS ORDERED: Glucagon 1 MG/ML KIT IM PRN (14:30)
[2022-11-22 14:38] VITALS: BMI 34.6
[2022-11-22] MEDS ORDERED: HumaLOG 300 UNITS/3 ML VIAL SC PRN ×2 (17:19)
[2022-11-22] MEDS ORDERED: Potassium Chloride 20 MEQ TAB PO SCH (17:30)
[2022-11-22] MEDS ORDERED: Magnesium Sulfate 4 GM in Sodium Chloride 0.9% 250 ML 250 ML IVPB SCH (17:30)
[2022-11-22] MEDS ORDERED: Magnesium Sulfate In Water 4 GM in Premix Bag 1 BAG IVPB SCH (17:45)
[2022-11-22] MEDS: Sodium Chloride 0.9% 1,000 ML IV SCH (18:33)
[2022-11-22] MEDS: Morphine IR Tab 15 MG TAB PO PRN (18:44)
[2022-11-22] MEDS: Atorvastatin Calcium 40 MG TAB PO SCH (21:29)
[2022-11-22] MEDS: Famotidine/PF 20 mg/2ml Vial SLOW IVP SCH (21:29)
[2022-11-22] MEDS ORDERED: Nadolol 40 MG TAB PO SCH (21:30)
[2022-11-22] MEDS: Acetaminophen 325 MG TAB PO PRN (23:41)
[2022-11-22] MEDS: Ondansetron PF 4 MG/2 ML Vial IVP PRN (23:42)
[2022-11-23] MEDS: Morphine IR Tab 15 MG TAB PO PRN (04:38)
[2022-11-23 05:50] LABS: Hemoglobin 9.7 g/dL (12.0-16.0); Mean Corpuscular HGB CONC 34.2 g/dL (32.0-36.0); Mean Corpuscular Hemoglobin 33.9 pg (27.0-31.0); Mean Corpuscular Volume 99.3 fl (78.0-98.0); Mean Platelet Volume 10.5 fL (7.4-10.4); RBC Distribution Width 14.3 % (11.5-14.5); Red Blood Cell (RBC) Count 2.86 mill/uL (4.20-5.40); White Blood Cell (WBC) Count 1.6 10x3/uL (4.8-10.8)
[2022-11-23 06:15] LABS: ALT (SGPT) 22 U/L (8-55); AST (SGOT) 27 U/L (5-34); Albumin 2.7 g/dL (3.4-4.8); Alkaline Phosphatase 41 U/L (40-110); Anion Gap 12 mmol/L (10-20); BUN (Urea Nitrogen) 14 mg/dL (9.8-20.1); Bilirubin, Total 1.6 mg/dL (0.2-1.2); Calc. Creatinine Clearance 128 mL/min (70-130); Carbon Dioxide 21 mmol/L (23-31); Chloride 106 mmol/L (98-107); Estimated GFR 98; Globulin 1.9 g/dL (2.4-3.5); Glucose 144 mg/dL (80-115); Potassium 3.7 mmol/L (3.5-5.1); Protein, Total 4.6 g/dL (5.8-8.1); Sodium 135 mmol/L (136-145)
[2022-11-23 06:39] LABS: Delete Auto Diff?? YES; Manual Diff?? YES; Platelet Count 26 10x3/uL (130-400)
[2022-11-23 07:13] LABS: Band 43 % (5-11); Burr Cells MODERATE= 6-15 cells HPF (0-1); CellaVision Operator ID LAB.GE; Eosinophils 3 % (0-10); Giant Platelets 0.9 % (0-5); Large Platelets 4.7 % (0-5); Lymphocytes 5 % (21-51); Metamyelocyte 6 % (0-0); Monocytes 4 % (0-10); Neutrophil 40 % (42-75); Ovalocytes SLIGHT = 2-5 cells HPF (0-1); Platelet Adequacy Comment Significant decrease; Polychromasia SLIGHT = 2-3 cells HPF (0-2); Total Cell Count 106
[2022-11-23] MEDS: Sodium Chloride 0.9% 1,000 ML IV SCH ×2 (08:29→09:31)
[2022-11-23] MEDS: Oxybutynin ER 5 MG TAB PO SCH (08:42)
[2022-11-23] MEDS: Famotidine/PF 20 mg/2ml Vial SLOW IVP SCH ×2 (08:43→21:14)
[2022-11-23] MEDS: cefTRIAXone\\ROCEPHIN 1 GM in Sodium Chloride 0.9% 100 ML IVPB SCH (08:43)
[2022-11-23] MEDS: Ezetimibe 10 MG TAB PO SCH (08:43)
[2022-11-23] MEDS: Insulin Glargine 30 UNITS/0.3 ML VIAL SC SCH (08:47)
[2022-11-23] MEDS: Morphine 2 MG/ML VIAL SLOW IVP PRN ×2 (14:23→20:04)
[2022-11-23] MEDS ORDERED: metroNIDAZOLE 500 MG in Premix Bag 1 BAG IVPB SCH (15:30)
[2022-11-23 16:59] LABS: Bilirubin Negative (Negative); Blood, Urine Negative (Negative); CAUTI Indications for Culture Dysuria,urgency,freq; Clarity Clear (Clear); Glucose, Urine (Dipstick) Normal (Negative); Ketone, Urine Negative (Negative); Leukocyte Negative Leu/uL (Negative); Nitrite Negative (Negative); Protein, Urine (Dipstick) Negative (Neg-Trace); RBC/HPF 0-3 HPF (0-3); Specific Gravity, Urine 1.021 (1.002-1.036); Squamous Epithelial 0-3 HPF (0-3); Urobilinogen Normal mg/dL (Less than 2)
[2022-11-23 17:08] LABS: Bacteria/HPF Rare-Few HPF (None Seen)
[2022-11-23 17:09] LABS: Urine Culture Reflex No No
[2022-11-23] MEDS: Atorvastatin Calcium 40 MG TAB PO SCH (21:14)
[2022-11-23] MEDS: Nadolol 40 MG TAB PO SCH ×2 (21:15→21:18)
[2022-11-23] MEDS: metroNIDAZOLE 500 MG in Premix Bag 1 BAG IVPB SCH (21:25)
[2022-11-24] MEDS: Morphine 2 MG/ML VIAL SLOW IVP PRN ×2 (03:41→17:40)
[2022-11-24] MEDS: metroNIDAZOLE 500 MG in Premix Bag 1 BAG IVPB SCH ×3 (06:27→21:03)
[2022-11-24 08:36] LABS: Hemoglobin 10.7 g/dL (12.0-16.0); Mean Corpuscular HGB CONC 34.9 g/dL (32.0-36.0); Mean Corpuscular Hemoglobin 34.5 pg (27.0-31.0); Mean Platelet Volume 11.1 fL (7.4-10.4); RBC Distribution Width 14.4 % (11.5-14.5); White Blood Cell (WBC) Count 1.1 10x3/uL (4.8-10.8)
[2022-11-24 08:46] LABS: Platelet Count 31 10x3/uL (130-400)
[2022-11-24 08:47] LABS: Delete Auto Diff?? YES; Manual Diff?? YES
[2022-11-24 08:57] LABS: Anion Gap 10 mmol/L (10-20); BUN (Urea Nitrogen) 11 mg/dL (9.8-20.1); Calc. Creatinine Clearance 132 mL/min (70-130); Carbon Dioxide 24 mmol/L (23-31); Chloride 106 mmol/L (98-107); Potassium 3.8 mmol/L (3.5-5.1); Sodium 136 mmol/L (136-145)
[2022-11-24 08:58] LABS: ALT (SGPT) 19 U/L (8-55); AST (SGOT) 23 U/L (5-34); Albumin 2.9 g/dL (3.4-4.8); Alkaline Phosphatase 45 U/L (40-110); Bilirubin, Total 0.9 mg/dL (0.2-1.2); Calcium 8.3 mg/dL (7.8-10.44); Estimated GFR 99; Globulin 2.3 g/dL (2.4-3.5); Glucose 115 mg/dL (80-115); Magnesium 1.4 mg/dL (1.6-2.6); Protein, Total 5.2 g/dL (5.8-8.1)
[2022-11-24] MEDS ORDERED: Sodium Bicarbonate 2.5 MEQ/5 ML VIAL ONE (09:00)
[2022-11-24 09:16] LABS: Band 30 % (5-11); Burr Cells SLIGHT = 2-5 cells HPF (0-1); CellaVision Operator ID LAB.GE; Eosinophils 2 % (0-10); Large Platelets 2.8 % (0-5); Lymphocytes 14 % (21-51); Metamyelocyte 3 % (0-0); Monocytes 4 % (0-10); Neutrophil 41 % (42-75); Platelet Adequacy Comment Significant decrease; Polychromasia SLIGHT = 2-3 cells HPF (0-2); Reactive Lymphocytes 7 % (0-10); Smudge Cells 16.8 %; Total Cell Count 107
[2022-11-24] MEDS: cefTRIAXone\\ROCEPHIN 1 GM in Sodium Chloride 0.9% 100 ML IVPB SCH (09:16)
[2022-11-24] MEDS: Insulin Glargine 30 UNITS/0.3 ML VIAL SC SCH (09:18)
[2022-11-24] MEDS: Famotidine/PF 20 mg/2ml Vial SLOW IVP SCH ×2 (09:19→21:04)
[2022-11-24] MEDS: Ezetimibe 10 MG TAB PO SCH (09:19)
[2022-11-24] MEDS: Oxybutynin ER 5 MG TAB PO SCH (09:19)
[2022-11-24 10:32] LABS: Hep C IgG Ab Non-Reactive S/CO (NonReactive); Hep C Index 0.32 S/CO (0-0.79)
[2022-11-24 10:35] LABS: HBSAg Index 0.34 S/CO (0-0.99); Hep B Surf Ag Non-Reactive S/CO (NonReactive)
[2022-11-24 10:36] LABS: HIV (1/2) Antibody/Antigen Non-Reactive (NonReactive)
[2022-11-24] MEDS ORDERED: Magnesium Sulfate 3 GM in Sodium Chloride 0.9% 100 ML IVPB SCH (11:00)
[2022-11-24 13:05] LABS: RBC Count-Automated (BF) 122 /cu.mm; WBC/Nucleated-Auto (BF) 2083 /cu.mm
[2022-11-24 13:06] LABS: BF Color Yellow; Body Fluid Source Abscess Fluid; Clarity Hazy (Clear); Tube # EDTA
[2022-11-24 13:13] LABS: BF Segmented Neutrophils 84 %; Cell Count Non Hematic 15 %
[2022-11-24] MEDS: Nadolol 40 MG TAB PO SCH (21:02)
[2022-11-24] MEDS: Atorvastatin Calcium 40 MG TAB PO SCH (21:02)
[2022-11-24] MEDS: Morphine IR Tab 15 MG TAB PO PRN (21:15)
[2022-11-25] MEDS: Morphine 2 MG/ML VIAL SLOW IVP PRN ×2 (00:43→09:18)
[2022-11-25] MEDS: metroNIDAZOLE 500 MG in Premix Bag 1 BAG IVPB SCH ×3 (04:59→20:47)
[2022-11-25 05:25] LABS: Hemoglobin 11.6 g/dL (12.0-16.0); Mean Corpuscular HGB CONC 34.4 g/dL (32.0-36.0); Mean Corpuscular Hemoglobin 33.7 pg (27.0-31.0); Mean Platelet Volume 10.8 fL (7.4-10.4); Red Blood Cell (RBC) Count 3.44 mill/uL (4.20-5.40); White Blood Cell (WBC) Count 2.4 10x3/uL (4.8-10.8)
[2022-11-25 05:33] LABS: Delete Auto Diff?? YES; Manual Diff?? YES; Platelet Count 50 10x3/uL (130-400)
[2022-11-25 06:08] LABS: Band 12 % (5-11); Burr Cells SLIGHT = 2-5 cells HPF (0-1); CellaVision Operator ID lab.abc; Eosinophils 3 % (0-10); Large Platelets 0.8 % (0-5); Lymphocytes 22 % (21-51); Monocytes 7 % (0-10); Neutrophil 54 % (42-75); Platelet Adequacy Comment Platelets Decreased; Reactive Lymphocytes 2 % (0-10); Smudge Cells 15.7 %; Total Cell Count 121
[2022-11-25] MEDS: Famotidine/PF 20 mg/2ml Vial SLOW IVP SCH ×3 (09:09→20:52)
[2022-11-25] MEDS: cefTRIAXone\\ROCEPHIN 1 GM in Sodium Chloride 0.9% 100 ML IVPB SCH (09:09)
[2022-11-25] MEDS: Insulin Glargine 30 UNITS/0.3 ML VIAL SC SCH (09:09)
[2022-11-25] MEDS: Ezetimibe 10 MG TAB PO SCH (09:09)
[2022-11-25 09:10] LABS: Hemoglobin 11.4 g/dL (12.0-16.0); Mean Corpuscular HGB CONC 36.1 g/dL (32.0-36.0); Mean Corpuscular Hemoglobin 35.3 pg (27.0-31.0); Mean Corpuscular Volume 97.8 fl (78.0-98.0); Mean Platelet Volume 11.7 fL (7.4-10.4); RBC Distribution Width 13.8 % (11.5-14.5); Red Blood Cell (RBC) Count 3.23 mill/uL (4.20-5.40); White Blood Cell (WBC) Count 1.7 10x3/uL (4.8-10.8)
[2022-11-25] MEDS: Oxybutynin ER 5 MG TAB PO SCH (09:10)
[2022-11-25 09:18] LABS: Delete Auto Diff?? YES; Manual Diff?? YES; Platelet Count 39 10x3/uL (130-400)
[2022-11-25 09:29] LABS: ALT (SGPT) 22 U/L (8-55); AST (SGOT) 24 U/L (5-34); Alkaline Phosphatase 49 U/L (40-110); Anion Gap 11 mmol/L (10-20); BUN (Urea Nitrogen) 7 mg/dL (9.8-20.1); Calc. Creatinine Clearance 124 mL/min (70-130); Calcium 8.6 mg/dL (7.8-10.44); Carbon Dioxide 26 mmol/L (23-31); Chloride 103 mmol/L (98-107); Estimated GFR 97; Globulin 2.4 g/dL (2.4-3.5); Glucose 145 mg/dL (80-115); Magnesium 1.3 mg/dL (1.6-2.6); Potassium 3.8 mmol/L (3.5-5.1); Protein, Total 5.4 g/dL (5.8-8.1); Sodium 136 mmol/L (136-145)
[2022-11-25 11:40] LABS: Band 18 % (5-11); Burr Cells MODERATE= 6-15 cells HPF (0-1); CellaVision Operator ID LAB.GE; Eosinophils 3 % (0-10); Large Platelets 5.8 % (0-5); Lymphocytes 19 % (21-51); Metamyelocyte 2 % (0-0); Monocytes 12 % (0-10); Neutrophil 44 % (42-75); Ovalocytes SLIGHT = 2-5 cells HPF (0-1); Platelet Adequacy Comment Significant decrease; Polychromasia SLIGHT = 2-3 cells HPF (0-2); Reactive Lymphocytes 2 % (0-10); Total Cell Count 104
[2022-11-25] MEDS ORDERED: Magnesium Sulfate In Water 4 GM in Premix Bag 1 BAG IVPB SCH (15:45)
[2022-11-25] MEDS ORDERED: Magnesium Sulfate 4 GM in Sodium Chloride 0.9% 250 ML 250 ML IVPB SCH (15:45)
[2022-11-25] MEDS ORDERED: Electrolyte Replacement Protocol FS SCH (15:45)
[2022-11-25] MEDS: Ketorolac Tromethamine 30 MG/ML VIAL IVP PRN ×2 (17:49→23:52)
[2022-11-25] MEDS: Atorvastatin Calcium 40 MG TAB PO SCH (20:47)
[2022-11-25] MEDS: Nadolol 40 MG TAB PO SCH (20:47)
[2022-11-26] MEDS: Ketorolac Tromethamine 30 MG/ML VIAL IVP PRN (05:54)
[2022-11-26] MEDS: metroNIDAZOLE 500 MG in Premix Bag 1 BAG IVPB SCH ×3 (05:54→20:29)
[2022-11-26] MEDS: Ondansetron PF 4 MG/2 ML Vial IVP PRN (06:08)
[2022-11-26 07:08] LABS: Magnesium 1.7 mg/dL (1.6-2.6)
[2022-11-26] MEDS ORDERED: Magnesium 2 GM/50 ML(in water) 2 GM in Premix Bag 1 BAG IVPB SCH (08:00)
[2022-11-26] MEDS: Ezetimibe 10 MG TAB PO SCH (09:30)
[2022-11-26] MEDS: Famotidine/PF 20 mg/2ml Vial SLOW IVP SCH ×2 (09:30→20:22)
[2022-11-26] MEDS: Insulin Glargine 30 UNITS/0.3 ML VIAL SC SCH (09:30)
[2022-11-26] MEDS: cefTRIAXone\\ROCEPHIN 1 GM in Sodium Chloride 0.9% 100 ML IVPB SCH (09:30)
[2022-11-26] MEDS: Oxybutynin ER 5 MG TAB PO SCH (09:30)
[2022-11-26] MEDS: Morphine IR Tab 15 MG TAB PO PRN ×2 (09:31→18:37)
[2022-11-26] MEDS ORDERED: Iopamidol-370 76% 500 ML MDV (1 ML CHARGE) ONE (10:35)
[2022-11-26 14:03] LABS: Adenovirus F 40-41 Not Detected (Not Detected); Astrovirus Not Detected (Not Detected); C. difficile toxin A+B Not Detected (Not Detected); Campylobacter by PCR DETECTED (Not Detected); Cryptosporidium Not Detected (Not Detected); Cyclospora cayetanensis Not Detected (Not Detected); Entamoeba histolytica Not Detected (Not Detected); Enteroaggregative E. coli Not Detected (Not Detected); Enteropathogenic E. coli Not Detected (Not Detected); Enterotoxigenic E. coli Not Detected (Not Detected); Giardia lamblia Not Detected (Not Detected); Norovirus GI-GII Not Detected (Not Detected); Plesiomonas shigelloides Not Detected (Not Detected); Rotavirus A Not Detected (Not Detected); Salmonella Not Detected (Not Detected); Sapovirus Not Detected (Not Detected); Shiga-toxin-producing E coli Not Detected (Not Detected); Shigella/Enteroinvasive E coli Not Detected (Not Detected); Vibrio Not Detected (Not Detected); Vibrio cholerae Not Detected (Not Detected); Yersinia enterocolitica Not Detected (Not Detected)
[2022-11-26] MEDS: Atorvastatin Calcium 40 MG TAB PO SCH (20:20)
[2022-11-26] MEDS: Nadolol 40 MG TAB PO SCH (20:22)
[2022-11-27] MEDS: Acetaminophen 325 MG TAB PO PRN ×2 (02:26→09:21)
[2022-11-27] MEDS: metroNIDAZOLE 500 MG in Premix Bag 1 BAG IVPB SCH (06:33)
[2022-11-27] MEDS: Morphine IR Tab 15 MG TAB PO PRN (06:38)
[2022-11-27 07:18] LABS: Hemoglobin 10.3 g/dL (12.0-16.0); Mean Corpuscular HGB CONC 34.6 g/dL (32.0-36.0); Mean Corpuscular Hemoglobin 34.3 pg (27.0-31.0); Mean Corpuscular Volume 99.3 fl (78.0-98.0); Mean Platelet Volume 11.4 fL (7.4-10.4); RBC Distribution Width 14.3 % (11.5-14.5)
[2022-11-27 07:43] LABS: ALT (SGPT) 22 U/L (8-55); AST (SGOT) 35 U/L (5-34); Albumin 2.9 g/dL (3.4-4.8); Alkaline Phosphatase 48 U/L (40-110); Anion Gap 11 mmol/L (10-20); BUN (Urea Nitrogen) 9 mg/dL (9.8-20.1); Bilirubin, Total 0.9 mg/dL (0.2-1.2); CRP (Inflammatory) 3.09 mg/dL (= or < 0.5); Calc. Creatinine Clearance 132 mL/min (70-130); Calcium 8.5 mg/dL (7.8-10.44); Carbon Dioxide 25 mmol/L (23-31); Chloride 104 mmol/L (98-107); Estimated GFR 99; Globulin 2.1 g/dL (2.4-3.5); Glucose 94 mg/dL (80-115); Potassium 4.3 mmol/L (3.5-5.1); Sodium 136 mmol/L (136-145)
[2022-11-27 07:45] LABS: Delete Auto Diff?? YES; Manual Diff?? YES; Platelet Count 46 10x3/uL (130-400)
[2022-11-27 08:49] LABS: Band 1 % (5-11); Burr Cells SLIGHT = 2-5 cells HPF (0-1); CellaVision Operator ID LAB.NR; Eosinophils 7 % (0-10); Large Platelets 9.7 % (0-5); Lymphocytes 28 % (21-51); Monocytes 10 % (0-10); Neutrophil 54 % (42-75); Platelet Adequacy Comment Platelets Decreased; Polychromasia SLIGHT = 2-3 cells HPF (0-2); Smudge Cells 9.7 %; Total Cell Count 103
[2022-11-27] MEDS: cefTRIAXone\\ROCEPHIN 1 GM in Sodium Chloride 0.9% 100 ML IVPB SCH (09:18)
[2022-11-27] MEDS: Oxybutynin ER 5 MG TAB PO SCH (09:19)
[2022-11-27] MEDS: Famotidine/PF 20 mg/2ml Vial SLOW IVP SCH ×2 (09:19→21:57)
[2022-11-27] MEDS: Insulin Glargine 30 UNITS/0.3 ML VIAL SC SCH (09:19)
[2022-11-27] MEDS: Ezetimibe 10 MG TAB PO SCH (09:19)
[2022-11-27] MEDS: LevoFLOXacin 750 mg/D5W 750 MG in Premix Bag 1 BAG IVPB SCH (13:30)
[2022-11-27] MEDS ORDERED: Spironolactone 25 MG TAB PO SCH (18:00)
[2022-11-27] MEDS: Atorvastatin Calcium 40 MG TAB PO SCH (21:54)
[2022-11-27] MEDS: Nadolol 40 MG TAB PO SCH (21:55)
[2022-11-28 08:08] LABS: Hemoglobin 10.4 g/dL (12.0-16.0); Mean Corpuscular HGB CONC 34.7 g/dL (32.0-36.0); Mean Corpuscular Hemoglobin 34.3 pg (27.0-31.0); Mean Platelet Volume 11.5 fL (7.4-10.4); RBC Distribution Width 14.3 % (11.5-14.5); Red Blood Cell (RBC) Count 3.03 mill/uL (4.20-5.40); White Blood Cell (WBC) Count 1.6 10x3/uL (4.8-10.8)
[2022-11-28 08:42] LABS: Platelet Count 45 10x3/uL (130-400)
[2022-11-28 08:43] LABS: Delete Auto Diff?? YES; Manual Diff?? YES
[2022-11-28] MEDS: Ezetimibe 10 MG TAB PO SCH (09:18)
[2022-11-28] MEDS: Insulin Glargine 30 UNITS/0.3 ML VIAL SC SCH (09:18)
[2022-11-28] MEDS: Famotidine/PF 20 mg/2ml Vial SLOW IVP SCH ×2 (09:18→21:56)
[2022-11-28] MEDS: Spironolactone 25 MG TAB PO SCH ×2 (09:18→16:44)
[2022-11-28] MEDS: Oxybutynin ER 5 MG TAB PO SCH (09:19)
[2022-11-28 09:29] LABS: Anisocytosis SLIGHT = 6-15 cells HPF (0-5); Burr Cells SLIGHT = 2-5 cells HPF (0-1); CellaVision Operator ID LAB.NR; Eosinophils 5 % (0-10); Large Platelets 3.7 % (0-5); Lymphocytes 33 % (21-51); Macrocytosis SLIGHT = 6-15 cells HPF (0-5); Monocytes 16 % (0-10); Neutrophil 44 % (42-75); Platelet Adequacy Comment Platelets Decreased; Polychromasia SLIGHT = 2-3 cells HPF (0-2); Smudge Cells 7.3 %; Total Cell Count 109
[2022-11-28] MEDS: HYDROcodone/Acetaminophen 10/325 mg Tablet PO PRN ×2 (10:27→23:43)
[2022-11-28] MEDS: LevoFLOXacin 750 mg/D5W 750 MG in Premix Bag 1 BAG IVPB SCH (12:03)
[2022-11-28] MEDS: Morphine IR Tab 15 MG TAB PO PRN (16:44)
[2022-11-28] MEDS: Atorvastatin Calcium 40 MG TAB PO SCH (21:49)
[2022-11-28] MEDS: Nadolol 40 MG TAB PO SCH (21:50)
[2022-11-29] MEDS: Acetaminophen 325 MG TAB PO PRN (05:17)
[2022-11-29] MEDS: Ezetimibe 10 MG TAB PO SCH (08:10)
[2022-11-29] MEDS: Spironolactone 25 MG TAB PO SCH (08:10)
[2022-11-29] MEDS: Insulin Glargine 30 UNITS/0.3 ML VIAL SC SCH (08:11)
[2022-11-29] MEDS: Oxybutynin ER 5 MG TAB PO SCH (08:14)
[2022-11-29] MEDS: LevoFLOXacin 750 mg/D5W 750 MG in Premix Bag 1 BAG IVPB SCH (11:48)
[2022-11-29] MEDS: HYDROcodone/Acetaminophen 10/325 mg Tablet PO PRN (11:53)
[2022-11-29 13:26] VITALS: BP 128/77; TEMP 98
[2022-11-30] MEDS ORDERED: LevoFLOXacin 750 MG TAB PO SCH (06:00)
[2022-12-01 13:42] LABS: Norovirus GI Negative (Negative); Norovirus GII Negative (Negative)
== END 2022-11-29 15:40 | disposition home or self-care (01) | DRG 872 ==
LOC: SUATTDRO 09:12 → ERS 09:12 → ERHOLD 12:44 → 2NO 17:30 → T4-B 11-24 12:40
PROVIDERS: ADMIT Internal Medicine; ATTEND Family Medicine
PROC: 3E03329 Introduction of Other Anti-infective into Peripheral Vein, Percutaneous Approach (ICD-10-PCS; principal; 2022-11-22)
PROC: 0J973ZZ Drainage of Back Subcutaneous Tissue and Fascia, Percutaneous Approach (ICD-10-PCS; 2022-11-24)
DX: A41.59 Other Gram-negative sepsis (principal); D61.818 Other pancytopenia; I50.32 Chronic diastolic (congestive) heart failure; K76.6 Portal hypertension; K70.30 Alcoholic cirrhosis of liver without ascites; E11.9 Type 2 diabetes mellitus without complications; E78.5 Hyperlipidemia, unspecified; I25.10 Atherosclerotic heart disease of native coronary artery without angina pectoris; K80.20 Calculus of gallbladder without cholecystitis without obstruction; D64.9 Anemia, unspecified; D69.6 Thrombocytopenia, unspecified; Z20.822 Contact with and (suspected) exposure to COVID-19; K46.9 Unspecified abdominal hernia without obstruction or gangrene; F41.9 Anxiety disorder, unspecified; I11.0 Hypertensive heart disease with heart failure; F32.A Depression, unspecified; K70.31 Alcoholic cirrhosis of liver with ascites; Z88.5 Allergy status to narcotic agent; Z91.048 Other nonmedicinal substance allergy status; Z85.038 Personal history of other malignant neoplasm of large intestine; Z79.899 Other long term (current) drug therapy; Z79.4 Long term (current) use of insulin
CPT/HCPCS: 36415; 36416; 49060; 71045; 72192; 74177; 76705; 77002; 80053; 81001; 83605; 83630; 83690; 83735; 84145; 84484; 85025; 85060; 85610; 85652; 85730; 86140; 86803; 87040; 87070; 87086; 87205; 87324; 87328; 87329; 87340; 87389; 87449; 87507; 87633; 87798; 89051; 93005; 96361; 96365; 96367; 96375; J0692; J0696; J1815; J1885; J1956; J2270; J2272; J2405; J2543; J3475; J3490; J7050; Q9967; S0028

== ENCOUNTER 2023-03-30 07:39 | Outpatient (CLI) | payer OTHER, MEDICAID | END 2023-03-30 07:40 | disposition home or self-care (01) | LOC: CT 07:39 | PROVIDERS: ATTEND Physician Assistant Medical | DX: K42.9 Umbilical hernia without obstruction or gangrene (principal); K70.30 Alcoholic cirrhosis of liver without ascites; K43.9 Ventral hernia without obstruction or gangrene; K94.00 Colostomy complication, unspecified; K76.6 Portal hypertension; K80.20 Calculus of gallbladder without cholecystitis without obstruction | CPT/HCPCS: 74177 ==

== ENCOUNTER 2023-04-05 08:08 | Day surgery (SDC) | payer OTHER, MEDICAID ==
[2023-03-30 15:00] VITALS: BMI 34.6
[2023-04-05] MEDS ORDERED: PROPOFOL 40 ML ONE (09:57)
[2023-04-05] MEDS ORDERED: Lidocaine 1% PF 5 ML VIAL ONE (09:57)
[2023-04-05] MEDS ORDERED: HYDROcodone/Acetaminophen 5/325 mg Tablet ONE (12:44)
== END 2023-04-05 13:00 | disposition home or self-care (01) ==
LOC: SDC 08:08
PROVIDERS: ATTEND Internal Medicine Gastroenterology
PROC: 0DJ08ZZ Inspection of Upper Intestinal Tract, Via Natural or Artificial Opening Endoscopic (ICD-10-PCS; principal; 2023-04-05)
PROC: 0DJD8ZZ Inspection of Lower Intestinal Tract, Via Natural or Artificial Opening Endoscopic (ICD-10-PCS; 2023-04-05)
DX: K70.30 Alcoholic cirrhosis of liver without ascites (principal); K43.5 Parastomal hernia without obstruction or gangrene; C20 Malignant neoplasm of rectum; I85.00 Esophageal varices without bleeding; K76.6 Portal hypertension; K31.89 Other diseases of stomach and duodenum; D64.9 Anemia, unspecified; D41.9 Neoplasm of uncertain behavior of unspecified urinary organ; I25.10 Atherosclerotic heart disease of native coronary artery without angina pectoris; F32.A Depression, unspecified; N83.209 Unspecified ovarian cyst, unspecified side; I81 Portal vein thrombosis; G47.30 Sleep apnea, unspecified; E07.9 Disorder of thyroid, unspecified; Z98.890 Other specified postprocedural states; Z98.49 Cataract extraction status, unspecified eye; Z79.899 Other long term (current) drug therapy; Z88.5 Allergy status to narcotic agent; Z87.891 Personal history of nicotine dependence
CPT/HCPCS: 36416; J2704

== ENCOUNTER 2023-04-06 17:59 | Inpatient (IN) | payer OTHER, MEDICAID ==
[~2023-04-06 17:59] MED LIST: Iopamidol-370 76% 500 ML MDV (1 ML CHARGE) ONE
[2023-04-06 18:52] LABS: Bacteria/HPF None Seen HPF (None Seen); Bilirubin Negative (Negative); Blood, Urine Negative (Negative); CAUTI Indications for Culture Pelvic or flank pain; Clarity Clear (Clear); Glucose, Urine (Dipstick) 300 mg/dL (Negative); Ketone, Urine Negative (Negative); Leukocyte 25 Leu/uL (Negative); Nitrite Negative (Negative); Protein, Urine (Dipstick) 10 mg/dL (Neg-Trace); RBC/HPF 0-3 HPF (0-3); Specific Gravity, Urine 1.023 (1.002-1.036); Squamous Epithelial 0-3 HPF (0-3); pH, Urine 5.5 (5.0-9.0)
[2023-04-06 18:54] LABS: Urine Culture Reflex No No
[2023-04-06] MEDS ORDERED: Morphine 4 MG/ML VIAL ONE ×2 (19:04→22:30)
[2023-04-06] MEDS ORDERED: Ondansetron PF 4 MG/2 ML Vial ONE (19:04)
[2023-04-06 19:27] LABS: #Monocytes 0.3 thou/uL (0.11-0.59); #Neutrophils 2.2 thou/uL (1.40-6.50); %Basophils 0.3 % (0.0-1.0); %Lymphocytes 19.4 % (21.0-51.0); %Monocytes 9.4 % (0.0-10.0); %Neutrophils 69.6 % (42.0-75.0); Hematocrit 32.4 % (36.0-47.0); Hemoglobin 11.7 g/dL (12.0-16.0); Mean Corpuscular HGB CONC 36.1 g/dL (32.0-36.0); Mean Corpuscular Hemoglobin 35.2 pg (27.0-31.0); Mean Corpuscular Volume 97.6 fl (78.0-98.0); Mean Platelet Volume 10.7 fL (7.4-10.4); RBC Distribution Width 12.9 % (11.5-14.5); Red Blood Cell (RBC) Count 3.32 mill/uL (4.20-5.40); White Blood Cell (WBC) Count 3.1 10x3/uL (4.8-10.8)
[2023-04-06 19:31] LABS: Platelet Count 35 10x3/uL (130-400)
[2023-04-06 20:08] LABS: ALT (SGPT) 21 U/L (8-55); AST (SGOT) 41 U/L (5-34); Albumin 3.4 g/dL (3.4-4.8); Alkaline Phosphatase 53 U/L (40-110); Anion Gap 10 mmol/L (10-20); BUN (Urea Nitrogen) 10 mg/dL (9.8-20.1); Bilirubin, Total 2.8 mg/dL (0.2-1.2); Calc. Creatinine Clearance 0 mL/min (70-130); Calcium 8.6 mg/dL (7.8-10.44); Carbon Dioxide 25 mmol/L (23-31); Chloride 102 mmol/L (98-107); Estimated GFR 91; Globulin 2.7 g/dL (2.4-3.5); Glucose 115 mg/dL (80-115); Lipase 24 U/L (8-78); Magnesium 1.2 mg/dL (1.6-2.6); Potassium 3.3 mmol/L (3.5-5.1); Protein, Total 6.1 g/dL (5.8-8.1); Sodium 134 mmol/L (136-145)
[2023-04-06 20:10] LABS: Troponin I Less than 0.010 ng/mL (< 0.028)
[2023-04-06] MEDS ORDERED: Potassium Chloride 20 MEQ TAB ONE (21:55)
[2023-04-06] MEDS ORDERED: Magnesium 2 GM/50 ML BAG (IN WATER) ONE (21:57)
[2023-04-06] MEDS ORDERED: Piperacillin/Tazobactam 3.375 GM in Sodium Chloride 0.9% 100 ML IVPB SCH (23:45)
[2023-04-06] MEDS ORDERED: Acetaminophen 650 MG Suppository PR PRN (23:49)
[2023-04-06] MEDS ORDERED: Ondansetron ODT 4 MG TAB PO PRN (23:49)
[2023-04-06] MEDS ORDERED: Acetaminophen 325 MG TAB PO PRN (23:49)
[2023-04-06] MEDS ORDERED: Ondansetron PF 4 MG/2 ML Vial IVP PRN (23:49)
[2023-04-06] MEDS ORDERED: fentaNYL 50 mcg/mL 1 mL Vial SLOW IVP PRN (23:51)
[2023-04-07] MEDS: Sodium Chloride 0.9% 1,000 ML IV SCH ×4 (00:50→23:57)
[2023-04-07 01:22] VITALS: BMI 34.8
[2023-04-07 01:55] LABS: Alcohol Less than 10.0 mg/dL (Less than 10); Triglycerides 71 mg/dL (Less than 150)
[2023-04-07] MEDS ORDERED: HumaLOG 300 UNITS/3 ML VIAL SC PRN ×2 (02:15)
[2023-04-07] MEDS ORDERED: Glucagon 1 MG/ML KIT IM PRN (02:15)
[2023-04-07] MEDS ORDERED: Dextrose 50% Abboject 50 ML SYRINGE SLOW IVP PRN (02:15)
[2023-04-07] MEDS ORDERED: Dextrose 5% in Water 1,000 ML IV PRN (02:15)
[2023-04-07] MEDS: Piperacillin/Tazobactam 3.375 GM in Sodium Chloride 0.9% 100 ML IVPB SCH ×3 (05:22→21:18)
[2023-04-07 06:15] LABS: Hematocrit 30.5 % (36.0-47.0); Hemoglobin 10.8 g/dL (12.0-16.0); Mean Corpuscular HGB CONC 35.4 g/dL (32.0-36.0); Mean Corpuscular Hemoglobin 34.8 pg (27.0-31.0); Mean Corpuscular Volume 98.4 fl (78.0-98.0); RBC Distribution Width 13.2 % (11.5-14.5); White Blood Cell (WBC) Count 2.1 10x3/uL (4.8-10.8)
[2023-04-07 06:19] LABS: Delete Auto Diff?? YES; Manual Diff?? YES; Platelet Count 30 10x3/uL (130-400)
[2023-04-07] MEDS ORDERED: Morphine 4 MG/ML VIAL SLOW IVP PRN ×2 (06:20→09:57)
[2023-04-07 06:38] LABS: Anion Gap 10 mmol/L (10-20); BUN (Urea Nitrogen) 8 mg/dL (9.8-20.1); Calc. Creatinine Clearance 136 mL/min (70-130); Calcium 7.8 mg/dL (7.8-10.44); Carbon Dioxide 24 mmol/L (23-31); Chloride 106 mmol/L (98-107); Estimated GFR 99; Glucose 91 mg/dL (80-115); Potassium 3.8 mmol/L (3.5-5.1); Sodium 136 mmol/L (136-145)
[2023-04-07 06:54] LABS: Band 3 % (5-11); CellaVision Operator ID lab.sh2; Eosinophils 1 % (0-10); Lymphocytes 22 % (21-51); Macrocytosis SLIGHT = 6-15 cells HPF (0-5); Monocytes 9 % (0-10); Neutrophil 65 % (42-75); Ovalocytes SLIGHT = 2-5 cells HPF (0-1); Platelet Adequacy Comment Significant decrease; Polychromasia SLIGHT = 2-3 cells HPF (0-2); Smudge Cells 9.9 %; Total Cell Count 101
[2023-04-07 10:25] LABS: ALT (SGPT) 17 U/L (8-55); AST (SGOT) 32 U/L (5-34); Albumin 2.8 g/dL (3.4-4.8); Alkaline Phosphatase 43 U/L (40-110); Bilirubin, Direct 0.8 mg/dL (0.1-0.3); Bilirubin, Total 1.7 mg/dL (0.2-1.2); Lipase 282 U/L (8-78); Protein, Total 5.1 g/dL (5.8-8.1)
[2023-04-07] MEDS: Morphine 4 MG/ML VIAL SLOW IVP PRN ×3 (14:21→20:36)
[2023-04-08] MEDS: Sodium Chloride 0.9% 1,000 ML IV SCH ×5 (02:04→21:27)
[2023-04-08] MEDS: Morphine 4 MG/ML VIAL SLOW IVP PRN ×6 (02:04→21:36)
[2023-04-08] MEDS: Piperacillin/Tazobactam 3.375 GM in Sodium Chloride 0.9% 100 ML IVPB SCH ×3 (05:31→21:26)
[2023-04-08 05:43] LABS: Hematocrit 32.5 % (36.0-47.0); Hemoglobin 11.3 g/dL (12.0-16.0); Manual Diff?? YES; Mean Corpuscular HGB CONC 34.8 g/dL (32.0-36.0); Mean Corpuscular Volume 100.6 fl (78.0-98.0); Mean Platelet Volume 11.3 fL (7.4-10.4); RBC Distribution Width 13.2 % (11.5-14.5); Red Blood Cell (RBC) Count 3.23 mill/uL (4.20-5.40); White Blood Cell (WBC) Count 2.6 10x3/uL (4.8-10.8)
[2023-04-08 06:07] LABS: Delete Auto Diff?? YES; Platelet Count 43 10x3/uL (130-400)
[2023-04-08 06:13] LABS: ALT (SGPT) 19 U/L (8-55); AST (SGOT) 33 U/L (5-34); Albumin 2.9 g/dL (3.4-4.8); Alkaline Phosphatase 51 U/L (40-110); Anion Gap 12 mmol/L (10-20); BUN (Urea Nitrogen) 8 mg/dL (9.8-20.1); Bilirubin, Total 1.4 mg/dL (0.2-1.2); Calc. Creatinine Clearance 138 mL/min (70-130); Calcium 7.9 mg/dL (7.8-10.44); Carbon Dioxide 20 mmol/L (23-31); Chloride 106 mmol/L (98-107); Estimated GFR 99; Globulin 2.6 g/dL (2.4-3.5); Glucose 75 mg/dL (80-115); Magnesium 2.8 mg/dL (1.6-2.6); Potassium 3.6 mmol/L (3.5-5.1); Protein, Total 5.5 g/dL (5.8-8.1); Sodium 134 mmol/L (136-145)
[2023-04-08 06:57] LABS: Band 2 % (5-11); Burr Cells SLIGHT = 2-5 cells (100X) (0-1/hpf); Eosinophils 2 % (0-10); Lymphocytes 14 % (21-51); Monocytes 6 % (0-10); Neutrophil 76 % (42-75); Platelet Adequacy Comment Significant decrease
[2023-04-08 07:28] LABS: Hemoglobin A1c 5.6 % (4.0-6.0)
[2023-04-09] MEDS: Sodium Chloride 0.9% 1,000 ML IV SCH ×3 (04:05→22:04)
[2023-04-09] MEDS: Piperacillin/Tazobactam 3.375 GM in Sodium Chloride 0.9% 100 ML IVPB SCH ×3 (05:10→21:05)
[2023-04-09 06:05] LABS: Hematocrit 30.1 % (36.0-47.0); Hemoglobin 10.6 g/dL (12.0-16.0); Manual Diff?? YES; Mean Corpuscular HGB CONC 35.2 g/dL (32.0-36.0); Mean Corpuscular Hemoglobin 35.3 pg (27.0-31.0); Mean Corpuscular Volume 100.3 fl (78.0-98.0); Mean Platelet Volume 10.6 fL (7.4-10.4); RBC Distribution Width 13.1 % (11.5-14.5); White Blood Cell (WBC) Count 1.3 10x3/uL (4.8-10.8)
[2023-04-09 06:14] LABS: INR-International Normal Ratio 1.3; Prothrombin Time 17.2 sec (12.0-14.7)
[2023-04-09 06:34] LABS: ALT (SGPT) 19 U/L (8-55); AST (SGOT) 30 U/L (5-34); Albumin 2.9 g/dL (3.4-4.8); Alkaline Phosphatase 48 U/L (40-110); Anion Gap 10 mmol/L (10-20); BUN (Urea Nitrogen) 5 mg/dL (9.8-20.1); Bilirubin, Total 1.6 mg/dL (0.2-1.2); Calc. Creatinine Clearance 147 mL/min (70-130); Calcium 7.8 mg/dL (7.8-10.44); Carbon Dioxide 23 mmol/L (23-31); Chloride 107 mmol/L (98-107); Estimated GFR 101; Globulin 2.4 g/dL (2.4-3.5); Glucose 104 mg/dL (80-115); Lipase 65 U/L (8-78); Potassium 3.5 mmol/L (3.5-5.1); Protein, Total 5.3 g/dL (5.8-8.1); Sodium 136 mmol/L (136-145)
[2023-04-09 06:39] LABS: Delete Auto Diff?? YES; Platelet Count 41 10x3/uL (130-400)
[2023-04-09 07:50] LABS: Anisocytosis SLIGHT = 6-15 cells HPF (0-5); Band 5 % (5-11); CellaVision Operator ID LAB.CMB; Eosinophils 6 % (0-10); Large Platelets 7.4 % (0-5); Lymphocytes 28 % (21-51); Macrocytosis SLIGHT = 6-15 cells HPF (0-5); Monocytes 11 % (0-10); Neutrophil 49 % (42-75); Nucleated RBC (Manual Ct) 2 % (0); Ovalocytes SLIGHT = 2-5 cells HPF (0-1); Plasma Cells 1 % (0-0); Platelet Adequacy Comment Significant decrease; Polychromasia SLIGHT = 2-3 cells HPF (0-2); Total Cell Count 108
[2023-04-09] MEDS: HYDROcodone/Acetaminophen 5/325 mg Tablet PO PRN ×2 (10:46→15:09)
[2023-04-09] MEDS: Ranolazine 500 MG ER.TAB PO SCH (21:04)
[2023-04-09] MEDS: Insulin Glargine 30 UNITS/0.3 ML VIAL SC SCH (22:00)
[2023-04-10] MEDS: Sodium Chloride 0.9% 1,000 ML IV SCH ×3 (04:25→23:11)
[2023-04-10] MEDS: Piperacillin/Tazobactam 3.375 GM in Sodium Chloride 0.9% 100 ML IVPB SCH ×3 (04:25→20:49)
[2023-04-10 06:49] LABS: Hematocrit 31.8 % (36.0-47.0); Hemoglobin 11.2 g/dL (12.0-16.0); Mean Corpuscular HGB CONC 35.2 g/dL (32.0-36.0); Mean Corpuscular Hemoglobin 34.7 pg (27.0-31.0); Mean Corpuscular Volume 98.5 fl (78.0-98.0); Mean Platelet Volume 11.4 fL (7.4-10.4); RBC Distribution Width 13.1 % (11.5-14.5); Red Blood Cell (RBC) Count 3.23 mill/uL (4.20-5.40); White Blood Cell (WBC) Count 1.2 10x3/uL (4.8-10.8)
[2023-04-10 06:52] LABS: Delete Auto Diff?? YES; INR-International Normal Ratio 1.4; Manual Diff?? YES; Platelet Count 43 10x3/uL (130-400); Prothrombin Time 17.8 sec (12.0-14.7)
[2023-04-10] MEDS: Ranolazine 500 MG ER.TAB PO SCH ×2 (08:29→20:48)
[2023-04-10] MEDS: Cyanocobalamin (Vitamin B-12) 1,000 MCG TAB PO SCH (08:29)
[2023-04-10 09:03] LABS: Anisocytosis MODERATE=16-30 cells HPF (0-5); Band 2 % (5-11); CellaVision Operator ID LAB.CMB; Eosinophils 6 % (0-10); Large Platelets 7.7 % (0-5); Lymphocytes 18 % (21-51); Macrocytosis SLIGHT = 6-15 cells HPF (0-5); Monocytes 6 % (0-10); Neutrophil 68 % (42-75); Ovalocytes MODERATE= 6-15 cells HPF (0-1); Platelet Adequacy Comment Significant decrease; RBC Morphology 2; Total Cell Count 104
[2023-04-10] MEDS: HYDROcodone/Acetaminophen 5/325 mg Tablet PO PRN ×2 (14:18→20:48)
[2023-04-10] MEDS: Insulin Glargine 30 UNITS/0.3 ML VIAL SC SCH (20:49)
[2023-04-11] MEDS: Piperacillin/Tazobactam 3.375 GM in Sodium Chloride 0.9% 100 ML IVPB SCH ×3 (05:17→21:36)
[2023-04-11] MEDS: Ranolazine 500 MG ER.TAB PO SCH ×2 (09:57→21:37)
[2023-04-11] MEDS: Cyanocobalamin (Vitamin B-12) 1,000 MCG TAB PO SCH (09:57)
[2023-04-11 10:08] LABS: INR-International Normal Ratio 1.4; Prothrombin Time 18.1 sec (12.0-14.7)
[2023-04-11] MEDS: HYDROcodone/Acetaminophen 5/325 mg Tablet PO PRN (10:14)
[2023-04-11] MEDS: Insulin Glargine 30 UNITS/0.3 ML VIAL SC SCH (21:38)
[2023-04-12] MEDS: Piperacillin/Tazobactam 3.375 GM in Sodium Chloride 0.9% 100 ML IVPB SCH (05:33)
[2023-04-12 06:14] LABS: Hematocrit 30.3 % (36.0-47.0); Hemoglobin 10.7 g/dL (12.0-16.0); Mean Corpuscular HGB CONC 35.3 g/dL (32.0-36.0); Mean Platelet Volume 11.6 fL (7.4-10.4); RBC Distribution Width 13.2 % (11.5-14.5); Red Blood Cell (RBC) Count 3.06 mill/uL (4.20-5.40); White Blood Cell (WBC) Count 1.4 10x3/uL (4.8-10.8)
[2023-04-12 06:21] LABS: Delete Auto Diff?? YES; Manual Diff?? YES; Platelet Count 58 10x3/uL (130-400)
[2023-04-12 06:46] LABS: ALT (SGPT) 17 U/L (8-55); AST (SGOT) 26 U/L (5-34); Albumin 2.5 g/dL (3.4-4.8); Alkaline Phosphatase 44 U/L (40-110); Anion Gap 13 mmol/L (10-20); BUN (Urea Nitrogen) Less than 4 mg/dL (9.8-20.1); Bilirubin, Total 0.7 mg/dL (0.2-1.2); Calc. Creatinine Clearance 150 mL/min (70-130); Carbon Dioxide 22 mmol/L (23-31); Chloride 109 mmol/L (98-107); Estimated GFR 101; Globulin 2.4 g/dL (2.4-3.5); Glucose 91 mg/dL (80-115); Potassium 3.4 mmol/L (3.5-5.1); Protein, Total 4.9 g/dL (5.8-8.1); Sodium 141 mmol/L (136-145)
[2023-04-12 06:52] LABS: Band 1 % (5-11); CellaVision Operator ID lab.abc; Eosinophils 4 % (0-10); Lymphocytes 28 % (21-51); Monocytes 2 % (0-10); Myelocyte 2 % (0-0); Neutrophil 63 % (42-75); Platelet Adequacy Comment Platelets Decreased; Polychromasia SLIGHT = 2-3 cells HPF (0-2); Total Cell Count 100
[2023-04-12 07:50] VITALS: BP 113/52; TEMP 98.5
[2023-04-12] MEDS: Cyanocobalamin (Vitamin B-12) 1,000 MCG TAB PO SCH (09:30)
[2023-04-12] MEDS: Ranolazine 500 MG ER.TAB PO SCH (09:30)
== END 2023-04-12 19:26 | disposition home or self-care (01) | DRG 393 ==
LOC: ERS 17:59 → T4-B 22:46 → OBSVTOIN 04-07 13:25
PROVIDERS: ADMIT Student in an Organized Health Care Education/Training Program; ATTEND Family Medicine
DX: K91.89 Other postprocedural complications and disorders of digestive system (principal); I81 Portal vein thrombosis; K85.90 Acute pancreatitis without necrosis or infection, unspecified; I85.00 Esophageal varices without bleeding; K52.9 Noninfective gastroenteritis and colitis, unspecified; E11.9 Type 2 diabetes mellitus without complications; B19.20 Unspecified viral hepatitis C without hepatic coma; K74.60 Unspecified cirrhosis of liver; R16.2 Hepatomegaly with splenomegaly, not elsewhere classified; D64.9 Anemia, unspecified; E87.6 Hypokalemia; E83.42 Hypomagnesemia; D69.6 Thrombocytopenia, unspecified; F32.A Depression, unspecified; F41.9 Anxiety disorder, unspecified; K31.9 Disease of stomach and duodenum, unspecified; K44.9 Diaphragmatic hernia without obstruction or gangrene; K80.20 Calculus of gallbladder without cholecystitis without obstruction; K83.8 Other specified diseases of biliary tract; I11.9 Hypertensive heart disease without heart failure; Z88.5 Allergy status to narcotic agent; Z88.8 Allergy status to other drugs, medicaments and biological substances; Z79.4 Long term (current) use of insulin; Z79.899 Other long term (current) drug therapy; Z90.710 Acquired absence of both cervix and uterus; Z90.49 Acquired absence of other specified parts of digestive tract; Z85.038 Personal history of other malignant neoplasm of large intestine; Z93.3 Colostomy status
CPT/HCPCS: 36415; 36416; 71045; 74018; 74022; 74177; 76705; 80048; 80053; 80076; 80307; 81001; 83036; 83690; 83735; 83880; 84478; 84484; 85025; 85610; 93005; 93306; 96361; 96372; 96374; 96375; 96376; G0378; J1650; J1815; J2270; J2405; J2543; J2704; J3475; J3490; J7050; Q9967